=== PATIENT | female | born 1960 | race Caucasian/White ===

== ENCOUNTER 2022-09-22 18:17 | Emergency (ER) | payer BC, SELFPAY ==
--- NOTE | ~2022-09-22 | CT_ITS ---
EXAMINATION: CT ABDOMEN AND PELVIS WITHOUT CONTRAST CLINICAL INFORMATION: Right flank pain and history of kidney stones COMPARISON: None TECHNIQUE: Multidetector volumetric imaging was performed from the superior aspect of the liver through the pubic symphysis. Sagittal and coronal reformatted images were obtained on the technologist's workstation. This CT examination was performed using dose optimization techniques as appropriate, variously including the following: *Automated exposure control *Adjustment of mA and/or kV according to patient size (this includes techniques or standardized protocols for targeted exams where dose is matched to indication/reason for exam; i.e. extremities or head) *Use of iterative reconstruction technique DLP: 537 mGy-cm FINDINGS: LUNG BASES: The visualized lung bases are unremarkable. LIVER, GALLBLADDER, AND BILIARY TREE: Mild hepatic hypoattenuation suggesting mild steatosis. No liver lesion or biliary ductal dilation. The gallbladder is unremarkable with no evidence of radiopaque gallstones, gallbladder wall thickening, or obvious pericholecystic inflammatory changes. PANCREAS: Unremarkable. SPLEEN: Unremarkable. ADRENAL GLANDS: Unremarkable. KIDNEYS AND URETERS: No radiodense urinary tract calculi or hydronephrosis. No renal lesion. No perinephric stranding or fluid collection. BLADDER: Unremarkable. GASTROINTESTINAL TRACT: Possible small hiatal hernia. No dilated bowel loops. No bowel wall thickening. Normal appendix. No intra-abdominal free air. ABDOMINAL WALL: No significant hernia is appreciated. LYMPH NODES: No lymphadenopathy. VASCULAR: Normal caliber abdominal aorta. Scant scattered vascular calcifications. PELVIC VISCERA: Small amount of free pelvic fluid. Heterogeneous attenuation structure in the pelvis measuring approximately 7.5 x 6.3 x 6 cm in size. Uncertain as to whether not this represents an abnormal fibroid uterus or possibly and adnexal lesion or hemorrhagic mass or cyst. Correlate clinically with symptoms referable to the pelvis and suggest pelvic ultrasound for further evaluation. OSSEOUS STRUCTURES: Levoconvex scoliotic curvature the thoracolumbar spine with multilevel eccentric degenerative disc disease in lower lumbar facet arthrosis. No acute fracture or suspicious appearing osseous lesion. CT/CT abdomen pelvis wo IV con IMPRESSION: 1. No radiodense urinary tract calculi or hydronephrosis. 2. Heterogeneous attenuation structure/mass in the pelvis measuring approximately 7.5 x 6.3 x 6 cm in size. Uncertain as to whether not this represents an abnormal fibroid uterus or possibly an adnexal lesion or hemorrhagic mass or cyst. Correlate clinically with symptoms referable to the pelvis and suggest pelvic ultrasound for further evaluation. 3. Small amount of free pelvic fluid. 4. Mild hepatic steatosis.
--- NOTE | ~2022-09-22 | US_ITS ---
EXAMINATION: ULTRASOUND PELVIC, COMPLETE CLINICAL INFORMATION: Pelvic mass on CT. Low back pain. COMPARISON: CT scan abdomen pelvis 09/22/2022 TECHNIQUE: Transvaginal: Used to better visualize pelvic structures Transabdominal: Not adequate for visualization Spectral Doppler and color Doppler exam was utilized. LMP: Uncertain FINDINGS: UTERUS: Within the pelvis there is a heterogeneous well-defined mass which is most likely a fibroid uterus. Endometrial stripe is not identified however. The cervix cannot be identified.. This measures 6.4 x 5.4 x 6.8 cm. ADNEXA: Neither the right nor left ovary is seen. No adnexal abnormality. Cul-de-sac: No Fluid US/US pelvic and transvaginal IMPRESSION: 1. Heterogeneous well-defined mass in the pelvis measuring 6.8 cm. This is most likely a fibroid uterus. Correlate with surgical history. 2. The patient has not had a prior hysterectomy the pelvic lesion can be further evaluated with pelvic MRI. 3. Neither the right or left ovary is seen. There is no adnexal abnormality. This critical result was discussed with Zohreh Forrest NP on 09/22/2022, 10:00 PM and it was ascertained that the content and urgency of the report was understood at the time of direct communication.
[2022-09-22 18:20] VITALS: BP 144/74; PULSE 75; RESP 18; TEMP 36.9; O2SAT 95; BMI 26.6
--- NOTE | 2022-09-22 18:21 | ED_ITS ---
HPI - General Adult General Chief complaint: Back Pain/Injury <MIR Smith - Last Filed: 09/22/22 18:22> Stated complaint: lower back pain X1wk,unable to walk <MIR Smith - Last Filed: 09/22/22 18:22> Time Seen by Provider: 09/22/22 22:10 <MIR Smith - Last Filed: 09/22/22 18:22> Source: patient <Zohreh Forrest NP - Last Filed: 09/22/22 23:50> Mode of arrival: ambulatory <Zohreh Forrest NP - Last Filed: 09/22/22 23:50> Limitations: no limitations <Zohreh Forrest NP - Last Filed: 09/22/22 23:50> History of Present Illness HPI narrative: This is a 61-year-old male with a history of renal colic, back pain, partial hyst in the past who presents with right lower back pain for the last 1 week with no known injury or trauma. Patient denies any radiation of pain. Pain is worsened with walking and movement. No numbness/weakness/tingling in the lower extremities. No numbness in the groin. No fevers or chills. No ur inary symptoms. No bowel or bladder incontinence. Patient taking ibuprofen at home with continued symptoms <Zohreh Forrest NP - Last Filed: 09/22/22 23:50> Related Data Home medications: Previous Rx's Medication Instructions Recorded diazepam 5 mg tablet (Valium) 5 mg PO TID PRN muscle spasm #15 09/22/22 tabs ketorolac 10 mg tablet 10 mg PO Q8H PRN pain #20 tabs 09/22/22 lidocaine 5 % topical patch 1 patch topical DAILY #15 ea 09/22/22 (Lidoderm) <MIR Smith - Last Filed: 09/22/22 18:22> Allergies/adverse reactions: Allergies Allergy/AdvReac Type Severity Reaction Status Date / Time No Known Allergies Allergy Verified 09/22/22 18:20 <MIR Smith Last Filed: 09/22/22 18:22> Review of Systems Review of Systems: Yes all other systems are reviewed and are negative <Zohreh Forrest NUCLEAR LOGGING ENGINEER - Last Filed: 09/22/22 23:50> Constitutional: Constitutional: Reports no additional constitutional complaints, Denies body ache(s), Denies chills, Denies fever(s), Denies headache(s) and Denies weakness <Zohreh Forrest NUCLEAR LOGGING ENGINEER - Last Filed: 09/22/22 23:50> Eyes: Eyes: Reports no additional eye complaints and Denies change in vision <Zohreh Forrest NUCLEAR LOGGING ENGINEER - Last Filed: 09/22/22 23:50> ENT: Reports system reviewed and no additional complaints, except as documented, Denies dizziness, Denies headache(s), Denies nasal congestion, Denies nasal discharge and Denies neck pain <Zohreh Forrest NUCLEAR LOGGING ENGINEER - Last Filed: 09/22/22 23:50> Cardiovascular: Cardiovascular: Reports no additional cardiovascular complaints, Denies chest pain, Denies leg edema and Denies dyspnea <Zohreh Forrest NUCLEAR LOGGING ENGINEER - Last Filed: 09/22/22 23:50> Respiratory: Respiratory: Reports no additional respiratory complaints, Denies cough and Denies dyspnea <Zohreh Forrest NUCLEAR LOGGING ENGINEER - Last Filed: 09/22/22 23:50> Gastrointestinal: Gastrointestinal: Reports no additional gastrointestinal complaints, Denies abdominal pain, Denies diarrhea, Denies nausea and Denies vomiting <Zohreh Forrest NUCLEAR LOGGING ENGINEER - Last Filed: 09/22/22 23:50> Genitourinary: Genitourinary: Reports no additional female genitourinary complaints and Denies urinary incontinence <Zohreh Forrest NUCLEAR LOGGING ENGINEER - Last Filed: 09/22/22 23:50> Musculoskeletal: Musculoskeletal: Reports no additional musculoskeletal complaints, Reports back pain, Denies arthralgias, Denies joint swelling, Denies neck pain, Denies numbness and Denies tingling <Zohreh Forrest NUCLEAR LOGGING ENGINEER - Last Filed: 09/22/22 23:50> Integumentary/Breasts: Skin/Breast: Reports system reviewed and no additional complaints, except as docu and Denies rash <Zohreh Forrest NUCLEAR LOGGING ENGINEER - Last Filed: 09/22/22 23:50> Neurologic: Reports system reviewed and no additional complaints, except as documented, Denies dizziness, Denies headache(s), Denies numbness, Denies tingling and Denies weakness <Zohreh Forrest NP - Last Filed: 09/22/22 23:50> [facility] Past Medical History Attestation statement: The following information was validated with the patient. <Zohreh Forrest NP - Last Filed: 09/22/22 23:50> Source: old records reviewed and nursing notes reviewed <Zohreh Forrest NP - Last Filed: 09/22/22 23:50> Social History Social History: Social History Advance Directives: No Advance Directives Information Provided: Yes <MIR Smith - Last Filed: 09/22/22 18:22> Physical Exam ED Vital Signs: Vital Signs - 24 hr 09/22/22 18:20 09/22/22 22:10 Temperature 98.5 F 98.1 F Pulse Rate 75 72 Respiratory Rate 18 16 Blood Pressure 144/74 H 155/80 H Pulse Oximetry 95 97 Oxygen Delivery Method Room Air Room Air BMI result Body Mass Index 26.6 <MIR Smith - Last Filed: 09/22/22 18:22> Vital Signs - 24 hr 09/22/22 18:20 09/22/22 22:10 Temperature 98.5 F 98.1 F Pulse Rate 75 72 Respiratory Rate 18 16 Blood Pressure 144/74 H 155/80 H Pulse Oximetry 95 97 Oxygen Delivery Method Room Air Room Air BMI result Body Mass Index 26.6 <Zohreh Forrest NP - Last Filed: 09/22/22 23:50> Const General: cooperative, healthy appearing, comfortable and no acute distress <Zohreh Forrest NP - Last Filed: 09/22/22 23:50> Orientation/consciousness: patient oriented x3 <Zohreh Forrest NP - Last Filed: 09/22/22 23:50> Limitations: no limitations <Zohreh Forrest NP - Last Filed: 09/22/22 23:50> HENMT Head: Yes normal to inspection <Zohreh Forrest NUCLEAR LOGGING ENGINEER - Last Filed: 09/22/22 23:50> Ears: hearing grossly normal bilaterally <Zohreh Forrest NUCLEAR LOGGING ENGINEER - Last Filed: 09/22/22 23:50> Eyes General: appearance normal, both eyes and all related structures <Zohreh Forrest NUCLEAR LOGGING ENGINEER - Last Filed: 09/22/22 23:50> Pupils: Equal, round and reactive pupils present <Zohreh Forrest NUCLEAR LOGGING ENGINEER - Last Filed: 09/22/22 23:50> Neck Neck: Yes normal visual inspection <Zohreh Forrest, NUCLEAR LOGGING ENGINEER - Last Filed: 09/22/22 23:50> Chest Chest palpation & inspection: normal inspection of the chest <Zohreh Forrest NUCLEAR LOGGING ENGINEER - Last Filed: 09/22/22 23:50> Resp Effort & Inspection: normal respiratory effort <Zohreh Forrest NUCLEAR LOGGING ENGINEER - Last Filed: 09/22/22 23:50> Auscultation: clear to auscultation bilaterally <Zohreh Forrest NUCLEAR LOGGING ENGINEER - Last Filed: 09/22/22 23:50> Cardio Rate: regular rate <Zohreh Forrest NUCLEAR LOGGING ENGINEER - Last Filed: 09/22/22 23:50> Rhythm: regular rhythm <Zohreh Forrest NUCLEAR LOGGING ENGINEER - Last Filed: 09/22/22 23:50> Peripheral pulses: Peripheral pulses 2+ throughout <Zohreh Forrest NUCLEAR LOGGING ENGINEER - Last Filed: 09/22/22 23:50> GI Inspection: Yes normal to inspection <Zohreh Forrest NUCLEAR LOGGING ENGINEER - Last Filed: 09/22/22 23:50> Palpation (GI): Soft to palpation and nontender <Zohreh Forrest NUCLEAR LOGGING ENGINEER - Last Filed: 09/22/22 23:50> General: Yes no CVA tenderness <Zohreh Forrest NUCLEAR LOGGING ENGINEER - Last Filed: 09/22/22 23:50> Back/Spine/Pelvis Other: There is tenderness to the soft tissue of the right lumbar spine with no midline tenderness, step-offs deformities. Pain is worsened with right straight leg raise. Pain is worse with flexion and extension of the lumbar spine. +spasm <Zohreh Lon, NUCLEAR LOGGING ENGINEER - Last Filed: 09/22/22 23:50> Back: no CVA tenderness <Zohreh Lon, NUCLEAR LOGGING ENGINEER - Last Filed: 09/22/22 23:50> Thoracic/Lumbar Spine: thoracic and lumbar spine normal to inspection <Zohreh Lon, NUCLEAR LOGGING ENGINEER - Last Filed: 09/22/22 23:50> Skin General skin exam: no rashes or lesions noted <Zohreh Lon, NUCLEAR LOGGING ENGINEER - Last Filed: 09/22/22 23:50> Neuro General: patient oriented x3 and moves all extremities <Zohreh Lon, NUCLEAR LOGGING ENGINEER - Last Filed: 09/22/22 23:50> Cranial nerves: Yes CN's II-XII intact bilaterally, Yes Equal, round and reactive pupils present, Yes Bilaterally intact EOM present, Yes Nystagmus not present, Yes Normal facial strength present and Yes Midline tongue present <Zohreh Lon, NUCLEAR LOGGING ENGINEER - Last Filed: 09/22/22 23:50> Cognition (Neuro): normal cognition <Zohreh Juanitoi, NUCLEAR LOGGING ENGINEER - Last Filed: 09/22/22 23:50> Gait exam (Neuro): Normal gait present <Zohreh Lon, NUCLEAR LOGGING ENGINEER - Last Filed: 09/22/22 23:50> Motor exam (neuro): 5/5 motor strength present throughout <Zohreh Lon, NUCLEAR LOGGING ENGINEER - Last Filed: 09/22/22 23:50> Sensory Exam: Normal double simultaneous stimulation for sensation <Zohreh Lon, NUCLEAR LOGGING ENGINEER - Last Filed: 09/22/22 23:50> Deep tendon reflexes (DTR's): Right patellar reflex intensity grade: 2+ and Left patellar reflex intensity grade: 2+ <Zohreh Lon, NUCLEAR LOGGING ENGINEER - Last Filed: 09/22/22 23:50> Extrem General: Yes normal to inspection, Yes no pedal edema and Yes no calf tenderness <Zohreh Forrest, NUCLEAR LOGGING ENGINEER - Last Filed: 09/22/22 23:50> Course Course Course Narrative: This is an RME: Additional HPI, ROS, PE not included below will be deferred to primary provider. 61-year-old female no significant medical history presents with severe 10/10 intermittent right flank pain, patient states this has been going on for 4-5 days, the pain is so severe she cannot walk, she was close to calling an ambulance. Patient reports that she has a history of kidney stones and this feels similar. No blunt trauma. No urinary/bowel in continence/retention, weakness, saddle paresthesias, fevers, chills, nausea, vomiting, changes in urination, headache, vision changes, dizziness, chest pain, shortness of breath. Physical examination with pain with palpation to right flank region. Plan at this time basic labs, urine, CT of the abdomen and pelvis without contrast to rule out kidney stones. However other differentials include mus culoskeletal. <MIR Smith - Last Filed: 09/22/22 18:22> Reevaluation(s) Reevaluation #1: Labs and UA are negative. C remarks on imaging. Patient received Toradol and Valium in the ER with improvement of symptoms. Pain in the back is likely muscular. Patient will be discharged home with NSAID, muscle relaxants and medicated patches. She is aware that the pelvic mass seen on imaging today is likely incidental. She should follow up outpatient with her own executive chairman of the board. Reviewed worrisome signs and symptoms of when to return to the emergency room. Comfortable plan for discharge home. <Zohreh Forrest NP - Last Filed: 09/22/22 23:50> Medications Administered Discontinued Medications Generic Name Dose Route Start Last Admin Trade Name Freq PRN Reason Stop Dose Admin Diazepam 2 mg 09/22/22 22:29 09/22/22 22:45 Diazepam 2 Mg Tablet PO 09/22/22 22:30 2 mg ONCE ONE Administration Ketorolac Tromethamine 30 mg 09/22/22 18:21 09/22/22 22:11 Ketorolac Tromethamine 15 Mg/Ml Vial IM 09/22/22 18:22 30 mg ONCE ONE Administration <MIR Smith - Last Filed: 09/22/22 18:22> Medications Administered Discontinued Medications Generic Name Dose Route Start Last Admin Trade Name Freq PRN Reason Stop Dose Admin Diazepam 2 mg 09/22/22 22:29 09/22/22 22:45 Diazepam 2 Mg Tablet PO 09/22/22 22:30 2 mg ONCE ONE Administration Ketorolac Tromethamine 30 mg 09/22/22 18:21 09/22/22 22:11 Ketorolac Tromethamine 15 Mg/Ml Vial IM 09/22/22 18:22 30 mg ONCE ONE Administration <Zohreh Forrest NP - Last Filed: 09/22/22 23:50> Medical Decision Making Medical Decision Making [facility] Narrative: 61-year-old female here with atraumatic right lower back pain for the last 1 week with no other symptoms. On exam patient has pain on palpation over the soft tissue area with no midline tenderness, step-offs deformities. Patient has palpable muscle spasm on exam. Pain is worsened with flexion and extension of the spine and right straight leg raise. Likely musculoskeletal. Patient reports history of kidney stones and so was worried that this may be causing her pain. Patient has labs, UA, CT and ultrasound ordered from triage <JOE Jackson Last Filed: 09/22/22 23:50> Differential Diagnosis Differential Diagnoses: The differential diagnosis associated with the presentation includes <JOE Jackson Last Filed: 09/22/22 23:50> Pyelonephritis, renal colic, UTI, musculoskeletal back pain. No neurological deficits or red flag symptoms, history of IV drug abuse or imm unocompromised state suggest epidural abscess or cord compression or cord quinine <JOE Jackson Last Filed: 09/22/22 23:50> Consult Healthcare Provider Management of the patient was discussed with: Citizenship Teacher <Zohreh Forrest NP - Last Filed: 09/22/22 23:50> Ultrasound shows a pelvic mass. Patient has history of partial hystere ctomy. ?adnexal or ovarian mass. This was discussed with gynecology. Plan is for patient to follow-up with her own executive chairman of the board outpatient. She is aware that she may need additional imaging and further evaluation for this mass. She is also aware that this may be underlying malignancy and so it is very important that she follows up closely <Zohreh Forrest NP - Last Filed: 09/22/22 23:50> Lab Data [facility] Lab Attestation statement: I reviewed the patient's lab results. <JOE Jackson Last Filed: 09/22/22 23:50> Result Diagrams: 09/22/22 19:28 09/22/22 19:28 <MIR Smith - Last Filed: 09/22/22 18:22> Labs: Lab Results 09/22/22 09/22/22 09/22/22 Range/Units 19:28 19:28 19:28 WBC 7.2 (4.8-10.8) X10*3/uL RBC 4.59 (4.20-5.50) X10*6/uL Hgb 14.4 (12.0-16.0) g/dl Hct 42.5 (37.0-47.0) % MCV 92.6 (80.0-98.0) fL MCH 31.4 (27.0-33.0) pg MCHC 33.9 (31.0-35.0) g/dl RDW 11.7 (11.0-16.0) % Plt Count 227 (160-400) X10*3/uL MPV 9.9 (9.4-12.3) fL Immature Gran % (Auto) 0.1 (0.0-0.4) % Neut % (Auto) 75.5 H (45-73) % Lymph % (Auto) 16.2 L (20-40) % [place] % (Auto) 6.9 (2-11) % Eos % (Auto) 0.7 (0-4) % Baso % (Auto) 0.6 (0-2) % Lymph # (Auto) 1.2 (1.2-4.9) X10*3/uL [place] # (Auto) 0.5 (0.1-1.2) X10*3/uL Eos # (Auto) 0.1 (0.0-0.4) X10*3/uL Baso # (Auto) 0.0 (0.0-0.2) X10*3/uL Abs Immat Gran (auto) 0.01 (0.00-0.03) X10*3/uL Absolute Neuts (auto) 5.5 (2.0-8.3) x10*3/uL Absolute Nucleated RBC 0.000 (0.0-0.012) X10*3/uL Nucleated RBC % (auto) 0.0 (0.0-0.2) /100WBC Sodium 139 (135-145) mmol/L Potassium 4.4 (3.3-5.1) mmol/L Chloride 104 (96-108) mmol/L Carbon Dioxide 23 (22-29) mmol/L Anion Gap 16 (12-20) BUN 16 (9-16) mg/dL Creatinine 0.80 (0.5-1.4) mg/dL Estim Creat Clear Calc 71.8 Estimated GFR > 60 Random Glucose 87 (60-115) mg/dL Calcium 9.3 (8.4-10.2) mg/dL Magnesium 2.1 (1.6-2.6) mg/dL Total Bilirubin 0.9 (0.0-1.0) mg/dL AST 25 (5-31) U/L ALT 29 (0-31) U/L Alkaline Phosphatase 108 (39-117) U/L Total Protein 6.8 (6.5-8.0) g/dL Albumin 4.3 (3.5-5.0) g/dL Lipase 24 (8-78) U/L Urine Color Urine Appearance Urine pH (5.0-9.0) Ur Specific [place] (1.005-1.025) Urine Protein (Neg-Trace) mg/dL Urine Glucose (UA) (Negative) mg/dL Urine Ketones (Negative) mg/dL Urine Blood (Negative) Urine Nitrite (Negative) Ur Leukocyte Esterase (Negative) COVID-19 (EMILIE) Negative (Negative) COVID-19 Clin Com See Note 09/22/22 Range/Units 21:36 WBC (4.8-10.8) X10*3/uL RBC (4.20-5.50) X10*6/uL Hgb (12.0-16.0) g/dl Hct (37.0-47.0) % MCV (80.0-98.0) fL MCH (27.0-33.0) pg MCHC (31.0-35.0) g/dl RDW (11.0-16.0) % Plt Count (160-400) X10*3/uL MPV (9.4-12.3) fL Immature Gran % (Auto) (0.0-0.4) % Neut % (Auto) (45-73) % Lymph % (Auto) (20-40) % [place] % (Auto) (2-11) % Eos % (Auto) (0-4) % Baso % (Auto) (0-2) % Lymph # (Auto) (1.2-4.9) X10*3/uL [place] # (Auto) (0.1-1.2) X10*3/uL Eos # (Auto) (0.0-0.4) X10*3/uL Baso # (Auto) (0.0-0.2) X10*3/uL Abs Immat Gran (auto) (0.00-0.03) X10*3/uL Absolute Neuts (auto) (2.0-8.3) x10*3/uL Absolute Nucleated RBC (0.0-0.012) X10*3/uL Nucleated RBC % (auto) (0.0-0.2) /100WBC Sodium (135-145) mmol/L Potassium (3.3-5.1) mmol/L Chloride (96-108) mmol/L Carbon Dioxide (22-29) mmol/L Anion Gap (12-20) BUN (9-16) mg/dL Creatinine (0.5-1.4) mg/dL Estim Creat Clear Calc Estimated GFR Random Glucose (60-115) mg/dL Calcium (8.4-10.2) mg/dL Magnesium (1.6-2.6) mg/dL Total Bilirubin (0.0-1.0) mg/dL AST (5-31) U/L ALT (0-31) U/L Alkaline Phosphatase (39-117) U/L Total Protein (6.5-8.0) g/dL Albumin (3.5-5.0) g/dL Lipase (8-78) U/L Urine Color Yellow Urine Appearance Clear Urine pH 5.5 (5.0-9.0) Ur Specific [place] 1.020 (1.005-1.025) Urine Protein Negative (Neg-Trace) mg/dL Urine Glucose (UA) Negative (Negative) mg/dL Urine Ketones Negative (Negative) mg/dL Urine Blood Negative (Negative) Urine Nitrite Negative (Negative) Ur Leukocyte Esterase Negative (Negative) COVID-19 (EMILIE) (Negative) COVID-19 Clin Com <MIR Smith - Last Filed: 09/22/22 18:22> Lab Results 09/22/22 09/22/22 09/22/22 Range/Units 19:28 19:28 19:28 WBC 7.2 (4.8-10.8) X10*3/uL RBC 4.59 (4.20-5.50) X10*6/uL Hgb 14.4 (12.0-16.0) g/dl Hct 42.5 (37.0-47.0) % MCV 92.6 (80.0-98.0) fL MCH 31.4 (27.0-33.0) pg MCHC 33.9 (31.0-35.0) g/dl RDW 11.7 (11.0-16.0) % Plt Count 227 (160-400) X10*3/uL MPV 9.9 (9.4-12.3) fL Immature Gran % (Auto) 0.1 (0.0-0.4) % Neut % (Auto) 75.5 H (45-73) % Lymph % (Auto) 16.2 L (20-40) % [place] % (Auto) 6.9 (2-11) % Eos % (Auto) 0.7 (0-4) % Baso % (Auto) 0.6 (0-2) % Lymph # (Auto) 1.2 (1.2-4.9) X10*3/uL [place] # (Auto) 0.5 (0.1-1.2) X10*3/uL Eos # (Auto) 0.1 (0.0-0.4) X10*3/uL Baso # (Auto) 0.0 (0.0-0.2) X10*3/uL Abs Immat Gran (auto) 0.01 (0.00-0.03) X10*3/uL Absolute Neuts (auto) 5.5 (2.0-8.3) x10*3/uL Absolute Nucleated RBC 0.000 (0.0-0.012) X10*3/uL Nucleated RBC % (auto) 0.0 (0.0-0.2) /100WBC Sodium 139 (135-145) mmol/L Potassium 4.4 (3.3-5.1) mmol/L Chloride 104 (96-108) mmol/L Carbon Dioxide 23 (22-29) mmol/L Anion Gap 16 (12-20) BUN 16 (9-16) mg/dL Creatinine 0.80 (0.5-1.4) mg/dL Estim Creat Clear Calc 71.8 Estimated GFR > 60 Random Glucose 87 (60-115) mg/dL Calcium 9.3 (8.4-10.2) mg/dL Magnesium 2.1 (1.6-2.6) mg/dL Total Bilirubin 0.9 (0.0-1.0) mg/dL AST 25 (5-31) U/L ALT 29 (0-31) U/L Alkaline Phosphatase 108 (39-117) U/L Total Protein 6.8 (6.5-8.0) g/dL Albumin 4.3 (3.5-5.0) g/dL Lipase 24 (8-78) U/L Urine Color Urine Appearance Urine pH (5.0-9.0) Ur Specific [place] (1.005-1.025) Urine Protein (Neg-Trace) mg/dL Urine Glucose (UA) (Negative) mg/dL Urine Ketones (Negative) mg/dL Urine Blood (Negative) Urine Nitrite (Negative) Ur Leukocyte Esterase (Negative) COVID-19 (EMILIE) Negative (Negative) COVID-19 Clin Com See Note 09/22/22 Range/Units 21:36 WBC (4.8-10.8) X10*3/uL RBC (4.20-5.50) X10*6/uL Hgb (12.0-16.0) g/dl Hct (37.0-47.0) % MCV (80.0-98.0) fL MCH (27.0-33.0) pg MCHC (31.0-35.0) g/dl RDW (11.0-16.0) % Plt Count (160-400) X10*3/uL MPV (9.4-12.3) fL Immature Gran % (Auto) (0.0-0.4) % Neut % (Auto) (45-73) % Lymph % (Auto) (20-40) % [place] % (Auto) (2-11) % Eos % (Auto) (0-4) % Baso % (Auto) (0-2) % Lymph # (Auto) (1.2-4.9) X10*3/uL [place] # (Auto) (0.1-1.2) X10*3/uL Eos # (Auto) (0.0-0.4) X10*3/uL Baso # (Auto) (0.0-0.2) X10*3/uL Abs Immat Gran (auto) (0.00-0.03) X10*3/uL Absolute Neuts (auto) (2.0-8.3) x10*3/uL Absolute Nucleated RBC (0.0-0.012) X10*3/uL Nucleated RBC % (auto) (0.0-0.2) /100WBC Sodium (135-145) mmol/L Potassium (3.3-5.1) mmol/L Chloride (96-108) mmol/L Carbon Dioxide (22-29) mmol/L Anion Gap (12-20) BUN (9-16) mg/dL Creatinine (0.5-1.4) mg/dL Estim Creat Clear Calc Estimated GFR Random Glucose (60-115) mg/dL Calcium (8.4-10.2) mg/dL Magnesium (1.6-2.6) mg/dL Total Bilirubin (0.0-1.0) mg/dL AST (5-31) U/L ALT (0-31) U/L Alkaline Phosphatase (39-117) U/L Total Protein (6.5-8.0) g/dL Albumin (3.5-5.0) g/dL Lipase (8-78) U/L Urine Color Yellow Urine Appearance Clear Urine pH 5.5 (5.0-9.0) Ur Specific [place] 1.020 (1.005-1.025) Urine Protein Negative (Neg-Trace) mg/dL Urine Glucose (UA) Negative (Negative) mg/dL Urine Ketones Negative (Negative) mg/dL Urine Blood Negative (Negative) Urine Nitrite Negative (Negative) Ur Leukocyte Esterase Negative (Negative) COVID-19 (EMILIE) (Negative) COVID-19 Clin Com <Zohreh Forrest NP - Last Filed: 09/22/22 23:50> Independent Interpretation I performed an independent interpretation of an: Ultrasound and CT Scan <Zohreh Forrest NP - Last Filed: 09/22/22 23:50> Interpretation: I independently reviewed the ultrasound and the CT and agree with the radiologist's report. In addition patient has a history of a partial hysterectomy. Less likely fibroid uterus. More likely ovarian or adnexal mass <Zohreh Forrest NP - Last Filed: 09/22/22 23:50> Radiology Impression Discussion of test interpretation with radiology: I have reviewed the radiologist's reading. <Zohreh Forrest NP - Last Filed: 09/22/22 23:50> Radiologist Impression: INDINGS: LUNG BASES: The visualized lung bases are unremarkable.? LIVER, GALLBLADDER, AND BILIARY TREE: Mild hepatic hypoattenuation suggesting mild steatosis. No liver lesion or biliary ductal dilation. The gallbladder is unremarkable with no evidence of radiopaque gallstones, gallbladder wall thickening, or obvious pericholecystic inflammatory changes.? PANCREAS: Unremarkable.? SPLEEN: Unremarkable.? ADRENAL GLANDS: Unremarkable.? KIDNEYS AND URETERS: No radiodense urinary tract calculi or hydronephrosis. No renal lesion. No perinephric stranding or fluid collection.? BLADDER: Unremarkable.? GASTROINTESTINAL TRACT: Possible small hiatal hernia. No dilated bowel loops. No bowel wall thickening. Normal appendix. No intra-abdominal free air.? ABDOMINAL WALL: No significant hernia is appreciated.? LYMPH NODES: No lymphadenopathy. VASCULAR: Normal caliber abdominal aorta. Scant scattered vascular calcifications. PELVIC VISCERA: Small amount of free pelvic fluid. Heterogeneous attenuation structure in the pelvis measuring approximately 7.5 x 6.3 x 6 cm in size. Uncertain as to whether not this represents an abnormal fibroid uterus or possibly and adnexal lesion or hemorrhagic mass or cyst. Correlate clinically with symptoms referable to the pelvis and suggest pelvic ultrasound for further evaluation.? OSSEOUS STRUCTURES: Levoconvex scoliotic curvature the thoracolumbar spine with multilevel eccentric degenerative disc disease in lower lumbar facet arthrosis. No acute fracture or suspicious appearing osseous lesion. CT/CT abdomen pelvis wo IV con IMPRESSION: 1.? No radiodense urinary tract calculi or hydronephrosis. 2.? Heterogeneous attenuation structure/mass in the pelvis measuring approximately 7.5 x 6.3 x 6 cm in size. Uncertain as to whether not this represents an abnormal fibroid uterus or possibly an adnexal lesion or hemorrhagic mass or cyst. Correlate clinically with symptoms referable to the pelvis and suggest pelvic ultrasound for further evaluation. 3.? Small amount of free pelvic fluid. 4.? Mild hepatic steatosis. [address] [address] Ultrasound Report Signed Patient: Caryn Kumar MR#: [id number] : 1960 Acct:[id number] Age/Sex: 61 / F ADM Date: 09/22/22 Loc: HO.ED Attending Dr: Ordering Physician: Mario Alberto Mercer Date of Service: 09/22/22 Procedure(s): US pelvic and transvaginal Accession Number(s): [id number] cc: Mario Alberto Mercer~ EXAMINATION: ULTRASOUND PELVIC, COMPLETE CLINICAL INFORMATION: Pelvic mass on CT. Low back pain. COMPARISON: CT scan abdomen pelvis 09/22/2022 TECHNIQUE: Transvaginal: Used to better visualize pelvic structures Transabdominal: Not adequate for visualization Spectral Doppler and color Doppler exam was utilized. LMP: Uncertain FINDINGS: UTERUS: Within the pelvis there is a heterogeneous well-defined mass which is most likely a fibroid uterus. Endometrial stripe is not identified however. The cervix cannot be identified.. This measures 6.4 x 5.4 x 6.8 cm. ADNEXA: Neither the right nor left ovary is seen. No adnexal abnormality. Cul-de-sac: No Fluid US/US pelvic and transvaginal IMPRESSION: 1.? Heterogeneous well-defined mass in the pelvis measuring 6.8 cm. This is most likely a fibroid uterus. Correlate with surgical history. 2.? The patient has not had a prior hysterectomy the pelvic lesion can be further evaluated with pelvic MRI. 3.? Neither the right or left ovary is seen. There is no adnexal abnormality. ? This critical result was discussed with Zohreh Forrest NP on 09/22/2022, 10:00 PM and it was ascertained that the content and urgency of the report was understood at the time of direct communication. ? <Zhoreh Forrest NP - Last Filed: 09/22/22 23:50> Discharge Plan Discharge Clinical Impression: Strain of lumbar region, Abnormal ultrasound <MIR Smith Last Filed: 09/22/22 18:22> Patient Disposition: Home, Self-Care <MIR Smith - Last Filed: 09/22/22 18:22> Instructions: Back Pain (ED) <MIR Smith Last Filed: 09/22/22 18:22> Additional Instructions: Your ultrasound shows IMPRESSION: 1.? Heterogeneous well-defined mass in the pelvis measuring 6.8 cm. This is most likely a fibroid uterus. Correlate with surgical history. 2.? The patient has not had a prior hysterectomy the pelvic lesion can be further evaluated with pelvic MRI. 3.? Neither the right or left ovary is seen. There is no adnexal abnormality. We did discuss this with gynceology. 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 It is an incidental finding and not likelty causing your pain today. Take the medications as prescribed No heavy lifting or bending Return for incontinence of urine/stool, weakness/numbness/tingling in the legs, fever, vaginal bleeding <MIR Smith Last Filed: 09/22/22 18:22> Prescriptions: New diazepam [Valium] 5 mg tablet 5 mg PO TID PRN (Reason: muscle spasm) Qty: 15 0RF lidocaine [Lidoderm] 5 % adhesive patch,medicated 1 patch topical DAILY Qty: 15 0RF Rx Instructions: leave on most painful area for up to 12 hrs ketorolac 10 mg tablet 10 mg PO Q8H PRN (Reason: pain) Qty: 20 0RF <MIR Smith Last Filed: 09/22/22 18:22> Referrals: Liz Hong NUCLEAR LOGGING ENGINEER [Primary Care Provider] - 1 week <MIR Smith Last Filed: 09/22/22 18:22> Interventions: ED Discharge Assessment Last Done: 09/22/22 23:08 <MIR Smith Last Filed: 09/22/22 18:22> Discharge Date/Time: 09/22/22 23:09 <MIR Smith - Last Filed: 09/22/22 18:22>
[2022-09-22 19:34] LABS: MANUAL DIFF FLAG NO
[2022-09-22 19:38] LABS: Basophils Percent Auto 0.6 % (0-2); Eosinophils Absolute Auto 0.1 X10*3/uL (0.0-0.4); Eosinophils Percent Auto 0.7 % (0-4); Hematocrit 42.5 % (37.0-47.0); Hemoglobin 14.4 g/dl (12.0-16.0); Imm Gran Abs Auto 0.01 X10*3/uL (0.00-0.03); Imm Gran Pct Auto 0.1 % (0.0-0.4); Lymphocytes Absolute Auto 1.2 X10*3/uL (1.2-4.9); Lymphocytes Percent Auto 16.2 % (20-40); Mean Corpuscular HGB Conc 33.9 g/dl (31.0-35.0); Mean Corpuscular Hemoglobin 31.4 pg (27.0-33.0); Mean Corpuscular Volume 92.6 fL (80.0-98.0); Mean Platelet Volume 9.9 fL (9.4-12.3); Monocytes Absolute Auto 0.5 X10*3/uL (0.1-1.2); Monocytes Percent Auto 6.9 % (2-11); Neutrophils Absolute Auto 5.5 x10*3/uL (2.0-8.3); Neutrophils Percent Auto 75.5 % (45-73); Platelet Count 227 X10*3/uL (160-400); Red Blood Count 4.59 X10*6/uL (4.20-5.50); Red Cell Distribution Width 11.7 % (11.0-16.0); White Blood Count 7.2 X10*3/uL (4.8-10.8)
[2022-09-22 19:49] LABS: Alanine Aminotransferase 29 U/L (0-31); Albumin Level 4.3 g/dL (3.5-5.0); Alkaline Phosphatase 108 U/L (39-117); Anion Gap 16 (12-20); Aspartate Amino Transferase 25 U/L (5-31); Bilirubin Total 0.9 mg/dL (0.0-1.0); Blood Urea Nitrogen 16 mg/dL (9-16); Calcium 9.3 mg/dL (8.4-10.2); Carbon Dioxide 23 mmol/L (22-29); Chloride 104 mmol/L (96-108); Creatinine Clr Calc Pharmacy 71.8; Estimated Glomerular Filt Rate > 60; Glucose Random 87 mg/dL (60-115); Lipase 24 U/L (8-78); Magnesium 2.1 mg/dL (1.6-2.6); Potassium 4.4 mmol/L (3.3-5.1); Sodium 139 mmol/L (135-145); Total Protein 6.8 g/dL (6.5-8.0)
[2022-09-22 19:51] LABS: COVID-19 Test Negative (Negative); IDNOW Serial# 9DB6401D
[2022-09-22 21:44] LABS: Appearance Urine Clear; Color Urine Yellow; Glucose Urine UA Negative (Negative); Leukocyte Esterase Urine Negative (Negative); Nitrite Urine Negative (Negative); PH 5.5 (5.0-9.0); Urine Blood Negative (Negative); Urine Ketones Negative (Negative); Urine Protein Negative (Neg-Trace)
[2022-09-22 22:10] VITALS: BP 155/80; PULSE 72; RESP 16; TEMP 36.7; O2SAT 97
[2022-09-22] MEDS: Ketorolac Tromethamine 15 MG/ML VIAL 30 MG IM (22:11)
--- NOTE | 2022-09-22 22:11 | MHC.EDTECH ---
this pct assumed care of pt at this time ,vitals sign taken ,warm blanket given .
[2022-09-22] MEDS: diazePAM 2 MG TABLET PO (22:45)
--- NOTE | 2022-09-23 06:27 | P.CONOB_ITS ---
TRAFFIC CIRCUIT ENGINEER - CN: HPI Data of Consult Consult date: 09/22/22 Primary Care Provider: Liz Hong NP Consult Narrative Narrative: Late entry note I was consulted on Caryn Kumar who is a 62 year old female with a history of ? Hysterectomy in the past presented the emergency room with right lower back pain of 1 week duration.? Patient denies any radiation of pain. No other urinary or GI or bottling line attendant symptoms. The emergency room workup included CBC, chemistry, urine all negative. Pelvic ultrasound is CT of abdomen showed abnormal findings in the pelvis. cc:: CC: OB [facility] Social History Social History Advance Directives: No Advance Directives Information Provided: Yes Meds Allergies Allergy/AdvReac Type Severity Reaction Status Date / Time No Known Allergies Allergy Verified 09/22/22 18:20 TRAFFIC CIRCUIT ENGINEER Physical Exam Vitals Vital signs: Temp Pulse Resp BP Pulse Ox O2 Del Method 98.1 F 72 16 155/80 H 97 09/22/22 22:10 09/22/22 22:10 09/22/22 22:10 09/22/22 22:10 09/22/22 22:10 09/22/22 22:10 BMI result Body Mass Index 26.6 Additional Comments: Physical exam reported by MIR Jorge as the following Tenderness to the soft tissue of the right lumbar spine with no midline tenderness, step-offs deformities.? Pain is worsened with right straight leg raise.? Pain is worse with flexion and extension of the lumbar spine. +spasm no CVA tenderness Abdominal exam :no tenderness soft, TRAFFIC CIRCUIT ENGINEER - Results Labs 09/22/22 19:28 09/22/22 19:28 Labs: Short CBC 09/22/22 Range/Units 19:28 WBC 7.2 (4.8-10.8) X10*3/uL Hgb 14.4 (12.0-16.0) g/dl Hct 42.5 (37.0-47.0) % Plt Count 227 (160-400) X10*3/uL BMP 09/22/22 19:28 Sodium 139 Potassium 4.4 Chloride 104 Carbon Dioxide 23 BUN 16 Creatinine 0.80 Calcium 9.3 Liver Function 09/22/22 Range/Units 19:28 Total Bilirubin 0.9 (0.0-1.0) mg/dL AST 25 (5-31) U/L ALT 29 (0-31) U/L Alkaline Phosphatase 108 (39-117) U/L Albumin 4.3 (3.5-5.0) g/dL Urine 09/22/22 Range/Units 21:36 Urine Color Yellow Urine Appearance Clear Urine pH 5.5 (5.0-9.0) Ur Specific [place] 1.020 (1.005-1.025) Urine Protein Negative (Neg-Trace) mg/dL Urine Glucose (UA) Negative (Negative) mg/dL Imaging CT scan - pelvis: Radiologist's impression: ITS Impressions Abdomen/Pelvis CT 09/22/22 18:53 IMPRESSION: 1. No radiodense urinary tract calculi or hydronephrosis. 2. Heterogeneous attenuation structure/mass in the pelvis measuring approximately 7.5 x 6.3 x 6 cm in size. Uncertain as to whether not this represents an abnormal fibroid uterus or possibly an adnexal lesion or hemorrhagic mass or cyst. Correlate clinically with symptoms referable to the pelvis and suggest pelvic ultrasound for further evaluation. 3. Small amount of free pelvic fluid. 4. Mild hepatic steatosis. Pelvic/Transvag US 09/22/22 21:03 IMPRESSION: 1. Heterogeneous well-defined mass in the pelvis measuring 6.8 cm. This is most likely a fibroid uterus. Correlate with surgical history. 2. The patient has not had a prior hysterectomy the pelvic lesion can be further evaluated with pelvic MRI. 3. Neither the right or left ovary is seen. There is no adnexal abnormality. This critical result was discussed with Zohreh Forrest NP on 09/22/2022, 10:00 PM and it was ascertained that the content and urgency of the report was understood at the time of direct communication. Assessment and Plan (1) Pelvic mass: Status: Acute Plan Discussed with Zohreh Forrest NP the following: Based on review of CT scan and pelvic ultrasound report, I recommended that the patient needs an outpatient evaluation of the pelvic mass with the following possible differential diagnosis including but not limited to: History of a supracervical hysterectomy with new onset rapid growth of a myoma possible myosa rcoma, adnexal solid complex mass, malignant pre malignant or benign in nature, in addition to other possibilities, the patient needs and outpatient gynecologic evaluation as soon as possible for further management. I spent a total of 20 minutes reviewing the chart, communicating with the emergency room provider and documenting in the medical record Time Spent With Patient Time: Total time managing care of this patient today ____ minutes.
== END 2022-09-22 23:09 | disposition home or self-care (01) ==
PROVIDERS: Physician Assistant; Emergency Provider Emergency Medicine; PCP Nurse Practitioner Family
DX: S39.012A Strain of muscle, fascia and tendon of lower back, initial encounter (principal); X58.XXXA Exposure to other specified factors, initial encounter; Z20.822 Contact with and (suspected) exposure to COVID-19; Y93.9 Activity, unspecified; Y92.9 Unspecified place or not applicable; Y99.9 Unspecified external cause status; R93.89 Abnormal findings on diagnostic imaging of other specified body structures; R19.09 Other intra-abdominal and pelvic swelling, mass and lump
CPT/HCPCS: 74176; 76830; 76856; 80053; 81003; 83690; 83735; 85025; 87635; 96372; 99284; J1885

== ENCOUNTER 2022-09-25 14:11 | Observation (INO) | payer BC, SELFPAY ==
--- NOTE | ~2022-09-25 | MR_ITS ---
EXAMINATION: MR LUMBAR SPINE WITHOUT CONTRAST CLINICAL INFORMATION: Back pain. Radicular pain. COMPARISON: CT abdomen and pelvis from 09/22/2022. TECHNIQUE: MRI of the lumbar spine was obtained using routine sequences without contrast. FINDINGS: Prominent left convex curvature of the lumbar spine. Mild degenerative retrolisthesis of L2 on L3 and L3 on L4. Minimal degenerative grade 1 anterolisthesis of L4 on L5. Moderate degenerative disc disease from T12-L4. Mild degenerative disc disease at L4-L5 and L5-S1. Associated mixed Modic type discogenic endplate changes including mild Modic type I discogenic edema at T12-L1, L2-L3, and L3-L4. Mild marrow edema within the posterior elements of L4-S1 consistent with degenerative stress reaction. No additional suspicious marrow edema. The vertebral body heights are well-maintained. The conus medullaris terminates at the level of L1. The distal spinal cord is normal in appearance. Moderate edema within the right-sided psoas musculature from L1-L3. Moderate subcutaneous edema within the soft tissues of the back from L1-L5. No additional significant abnormalities of the paraspinal musculature. Limited evaluation of the intra-abdominal structures without significant abnormalities. The abdominal aorta is of normal contour and caliber. AXIAL SPINAL LEVELS: T12-L1: Mild diffuse disc bulge. There is moderate left and mild right facet joint arthropathy. There is mild right and no left neural foraminal stenosis. There is no spinal canal stenosis. L1-L2: Mild diffuse disc bulge with posterior osseous ridging. There is moderate bilateral facet joint arthropathy. There is mild right and no left neural foraminal stenosis. There is stenosis of the right subarticular zone with no overt spinal canal stenosis centrally. L2-L3: Mild diffuse disc bulge with posterior osseous ridging. There is moderate right and mild left facet joint arthropathy. There is mild right and no left neural foraminal stenosis. There is stenosis of the right subarticular zone with mild spinal canal stenosis centrally. L3-L4: Mild diffuse disc bulge with superimposed left foraminal disc protrusion. There is severe left and moderate right facet joint arthropathy. There is moderate left and mild right neural foraminal stenosis. There is stenosis of the left subarticular zone with mild spinal canal stenosis centrally exacerbated by prominent dorsal epidural lipomatous tissue. L4-L5: Mild diffuse disc bulge exacerbated by uncovering from anterolisthesis. There is severe left worse than right facet joint arthropathy. There is moderate left and no right neural foraminal stenosis. There is stenosis of the left subarticular zone with moderate spinal canal stenosis centrally. L5-S1: Shallow diffuse disc bulge. There is severe left and moderate facet joint arthropathy. There is no neural foraminal stenosis. There is narrowing of the subarticular zones with no overt spinal canal stenosis centrally. MR/MR lumbar spine wo con IMPRESSION: Moderate multilevel degenerative spondyloarthropathy of the lumbar spine as described in detail above. Most notably, there is moderate spinal canal stenosis at L4-L5. Mild spinal canal stenoses at L2-L3 and L3-L4. Narrowing/stenoses of the subarticular zones from L1-S1. Moderate neural foraminal stenoses at L3-L4 and L4-L5. Moderate edema within the right-sided psoas musculature from L1-L3, potentially related to chronic strain injury.
[2022-09-25 14:26] VITALS: BP 148/87; PULSE 67; O2SAT 96
[2022-09-25 14:31] VITALS: BP 137/77; PULSE 58; RESP 18; TEMP 36.8; O2SAT 97; BMI 28.3
[2022-09-25 15:14] LABS: MANUAL DIFF FLAG NO
[2022-09-25 15:15] LABS: Basophils Percent Auto 0.5 % (0-2); Eosinophils Absolute Auto 0.1 X10*3/uL (0.0-0.4); Hematocrit 41.4 % (37.0-47.0); Hemoglobin 13.7 g/dl (12.0-16.0); Imm Gran Abs Auto 0.02 X10*3/uL (0.00-0.03); Imm Gran Pct Auto 0.3 % (0.0-0.4); Lymphocytes Absolute Auto 0.7 X10*3/uL (1.2-4.9); Mean Corpuscular HGB Conc 33.1 g/dl (31.0-35.0); Mean Corpuscular Hemoglobin 31.1 pg (27.0-33.0); Mean Corpuscular Volume 93.9 fL (80.0-98.0); Mean Platelet Volume 10.1 fL (9.4-12.3); Monocytes Absolute Auto 0.5 X10*3/uL (0.1-1.2); Monocytes Percent Auto 8.6 % (2-11); Neutrophils Absolute Auto 4.5 x10*3/uL (2.0-8.3); Neutrophils Percent Auto 77.6 % (45-73); Platelet Count 205 X10*3/uL (160-400); Red Blood Count 4.41 X10*6/uL (4.20-5.50); Red Cell Distribution Width 11.6 % (11.0-16.0); White Blood Count 5.8 X10*3/uL (4.8-10.8)
--- NOTE | 2022-09-25 15:16 | PC.NURSE ---
pt a&ox3, vss, reporting 4/10 pain at rest, increasing to 10/10 w spasms/movement. labs drawn, IV placed, pt requesting home medications - didn't take this am, med rec complete, pt pending ED provider. no new orders at this time.
[2022-09-25 15:20] LABS: Prothrombin Time 11.4 SEC (10.0-13.1)
[2022-09-25 15:30] LABS: Alanine Aminotransferase 25 U/L (0-31); Albumin Level 3.9 g/dL (3.5-5.0); Alkaline Phosphatase 87 U/L (39-117); Anion Gap 11 (12-20); Aspartate Amino Transferase 22 U/L (5-31); Bilirubin Total 0.9 mg/dL (0.0-1.0); Blood Urea Nitrogen 21 mg/dL (9-16); Calcium 9.1 mg/dL (8.4-10.2); Carbon Dioxide 26 mmol/L (22-29); Chloride 109 mmol/L (96-108); Creatinine Clr Calc Pharmacy 78.8; Estimated Glomerular Filt Rate > 60; Glucose Random 117 mg/dL (60-115); Lipase 24 U/L (8-78); Potassium 4.1 mmol/L (3.3-5.1); Sodium 142 mmol/L (135-145)
--- NOTE | 2022-09-25 16:36 | PHA.MEDREC ---
Pharmacy Consult ? Medication Reconciliation Pharmacy has completed the medication reconciliation. Reviewed med rec done by nursing
[2022-09-25] MEDS: Morphine Sulfate 4 MG/ML CARTRIDGE IVPUSH ×3 (16:46→18:56)
[2022-09-25] MEDS: Escitalopram Oxalate 5 MG TABLET 15 MG PO (16:46)
[2022-09-25] MEDS: Cyclobenzaprine HCl 10 MG TABLET PO (16:46)
[2022-09-25] MEDS: Ketorolac Tromethamine 15 MG/ML VIAL IVPUSH (16:46)
[2022-09-25] MEDS: amLODIPine Besylate 5 MG TABLET PO (16:46)
[2022-09-25] MEDS: Atorvastatin Calcium 10 MG TABLET PO (16:46)
--- NOTE | 2022-09-25 16:50 | ED_ITS ---
HPI - Back Pain/Injury General Chief Complaint: Back Pain/Injury Stated Complaint: R FLANK PAIN PER EMS Time Seen by Provider: 09/25/22 15:22 Source: patient Mode of arrival: EMS Limitations: no limitations History of Present Illness HPI Narrative: 62-year-old female who presents emergency department for evaluation of severe back pain. The patient states she has been having right lower back pain for approximately 8 days but the pain is been worse over the past 3 days. The patient does not recall any injury. She denies systemic symptoms such as fever, chills, fatigue, nausea, vomiting, diarrhea. The pain is located in her right flank/lower back area. She states the pain is a constant, dull ache which ra nges from 11/21 to 05/23. She denied numbness or weakness of her lower extremities. She denied loss of bowel or bladder control. The pain is significantly worse with movement especially with movement of her right lower extremity. She states she gets severe spasm in her back to the point where she is unable to move. Her states the pain was severe, therefore he called an ambulance and the patient was transported to the emergency department for evaluation. She was seen here in the emergency department on 09/22/2022 (4 days prior). At the time, the provider work the patient up for possible kidney stone, CT scan revealed no ureteral stones but did reveal an incidental pelvic mass which on ultrasound was more consistent with a uterine fibroid (the patient did have a partial hysterectomy for fibroids in the past). The patient did have improvement of her pain at the time of discharge and was started on ketorolac and Valium which she states is given her some relief however the pain today was severe and she had to come back to the emergency department for re-evaluation CT scan from 09/22/2022 did revealed the following regarding lumbar spine: ?OSSEOUS STRUCTURES: Levoconvex scoliotic curvature the thoracolumbar spine with multilevel eccentric degenerative disc disease in lower lumbar facet arthrosis. No acute fracture or suspicious appearing osseous lesion. ? Related Data Home Medications Medication Instructions Recorded Confirmed amlodipine 5 mg tablet 1 tab PO DAILY 09/25/22 09/25/22 atorvastatin 10 mg tablet 1 tab PO DAILY 09/25/22 09/25/22 escitalopram oxalate 10 mg tablet 1.5 tab PO DAILY 09/25/22 09/25/22 olmesartan 40 mg tablet 1 tab PO DAILY 09/25/22 09/25/22 Previous Rx's Medication Instructions Recorded diazepam 5 mg tablet (Valium) 5 mg PO TID PRN muscle spasm #15 09/22/22 tabs ketorolac 10 mg tablet 10 mg PO Q8H PRN pain #20 tabs 09/22/22 lidocaine 5 % topical patch 1 patch topical DAILY #15 ea 09/22/22 (Lidoderm) Allergies Allergy/AdvReac Type Severity Reaction Status Date / Time No Known Allergies Allergy Verified 09/25/22 14:26 Review of Systems Review of Systems: Yes all other systems are reviewed and are negative [facility] Past Medical History [facility] Narrative: Past medical history: Hypertension, hyperlipidemia, vitamin-D deficiency, depression. Past surgical history: Micro disc surgery C5-C6 20 years prior, partial hysterectomy. Social history: The patient smokes 1/2 pack of cigarettes per day times 30 years. She drinks 1 bottle of wine per day. She does smoke marijuana occasionally. Social History Social History Advance Directives: No Advance Directives Information Provided: Yes Physical Exam Vital Signs: Vital Signs: Last Vital Signs Temp 98.3 F 09/25/22 17:15 Pulse 62 09/25/22 17:15 Resp 16 09/25/22 17:15 BP 145/76 H 09/25/22 17:15 Pulse Ox 98 09/25/22 17:15 O2 Del Method 09/25/22 17:15 BMI result Body Mass Index 28.3 Vital signs were normal General: Awake, alert, female patient she does not appear to be in distress if she lies still however any attempt to sit up or roll on her side causes severe pain and spasm to her right lower back HEENT: Head normal cephalic atraumatic, pupils equal round reactive light, sclera contact however normal Neck: Supple, no tenderness Lungs: Clear to auscultation Heart: Regular rate rhythm, normal S1-S2 no murmurs rubs gallops Abdomen: Soft, nontender, nondistended, normoactive bowel sounds Back: Patient has significant paraspinal tenderness with spasm in the lumbar sacral region on the right, she has negative straight leg raises bilaterally Neuro cranial nerves intact strength symmetric bilaterally Medications Administered Generic Name Dose Route Start Last Admin Trade Name Freq PRN Reason Stop Dose Admin Amlodipine Besylate 5 mg 09/25/22 16:45 09/25/22 16:46 Amlodipine Besylate 5 Mg Tablet PO 5 mg DAILY RISHABH Administration Protocol Atorvastatin Calcium 10 mg 09/25/22 16:45 09/25/22 16:46 Atorvastatin Calcium 10 Mg Tablet PO 10 mg DAILY RISHABH Administration Escitalopram Oxalate 15 mg 09/25/22 16:45 09/25/22 16:46 Escitalopram Oxalate 5 Mg Tablet PO 15 mg DAILY RISHABH Administration Discontinued Medications Generic Name Dose Route Start Last Admin Trade Name Grant PRN Reason Stop Dose Admin Cyclobenzaprine HCl 10 mg 09/25/22 16:15 09/25/22 16:46 Cyclobenzaprine Hcl 10 Mg Tablet PO 09/25/22 16:16 10 mg ONCE ONE Administration Ketorolac Tromethamine 15 mg 09/25/22 16:15 09/25/22 16:46 Ketorolac Tromethamine 15 Mg/Ml Vial IVPUSH 09/25/22 16:16 15 mg ONCE STA Administration Morphine Sulfate 4 mg 09/25/22 16:15 09/25/22 16:46 Morphine Sulfate 4 Mg/Ml Cartridge IVPUSH 09/25/22 16:16 4 mg ONCE STA Administration Protocol Medical Decision Making Medical Decision Making MDM Narrative: 62-year-old female who presents emergency department for evaluation of 8 days of right lower back pain worse times 3 days who was evaluated on 09/22/2022 diagnosed with strain of the lumbar back and pelvic mass. Patient was discharged with a prescription for Valium, lidocaine and Ketoralac tablets with no improvement of her pain. Her examination at this time is consistent with spasm of her lumbar sacral paraspinal muscles with a normal neurologic exam and no concerning systemic symptoms or focal neurologic findings. Did order laboratory evaluation includes CBC CMP lipase. She was ordered to get morphine 4 mg IV, Toradol 15 mg IV and cyclobenzaprine 10 mg orally. 1752: My independent interpretation patient's laboratory evaluation is as follows: CBC and CMP were normal. Patient got some relief with the above treatment, she however had significant pain and spasm with minimal movement still therefore she was given a 2nd dose of morphine 4 mg IV. Lab Data 09/25/22 15:08 09/25/22 15:08 Labs: Lab Results 09/25/22 09/25/22 09/25/22 Range/Units 15:08 15:08 15:08 WBC 5.8 (4.8-10.8) X10*3/uL RBC 4.41 (4.20-5.50) X10*6/uL Hgb 13.7 (12.0-16.0) g/dl Hct 41.4 (37.0-47.0) % MCV 93.9 (80.0-98.0) fL MCH 31.1 (27.0-33.0) pg MCHC 33.1 (31.0-35.0) g/dl RDW 11.6 (11.0-16.0) % Plt Count 205 (160-400) X10*3/uL MPV 10.1 (9.4-12.3) fL Immature Gran % (Auto) 0.3 (0.0-0.4) % Neut % (Auto) 77.6 H (45-73) % Lymph % (Auto) 12.0 L (20-40) % Williams % (Auto) 8.6 (2-11) % Eos % (Auto) 1.0 (0-4) % Baso % (Auto) 0.5 (0-2) % Lymph # (Auto) 0.7 L (1.2-4.9) X10*3/uL Williams # (Auto) 0.5 (0.1-1.2) X10*3/uL Eos # (Auto) 0.1 (0.0-0.4) X10*3/uL Baso # (Auto) 0.0 (0.0-0.2) X10*3/uL Abs Immat Gran (auto) 0.02 (0.00-0.03) X10*3/uL Absolute Neuts (auto) 4.5 (2.0-8.3) x10*3/uL Absolute Nucleated RBC 0.000 (0.0-0.012) X10*3/uL Nucleated RBC % (auto) 0.0 (0.0-0.2) /100WBC PT 11.4 (10.0-13.1) SEC INR 1.0 (0.9-1.1) Sodium 142 (135-145) mmol/L Potassium 4.1 (3.3-5.1) mmol/L Chloride 109 H (96-108) mmol/L Carbon Dioxide 26 (22-29) mmol/L Anion Gap 11 L (12-20) BUN 21 H (9-16) mg/dL Creatinine 0.74 (0.5-1.4) mg/dL Estim Creat Clear Calc 78.8 Estimated GFR > 60 Random Glucose 117 H (60-115) mg/dL Calcium 9.1 (8.4-10.2) mg/dL Magnesium 2.0 (1.6-2.6) mg/dL Total Bilirubin 0.9 (0.0-1.0) mg/dL AST 22 (5-31) U/L ALT 25 (0-31) U/L Alkaline Phosphatase 87 (39-117) U/L Total Protein 6.0 L (6.5-8.0) g/dL Albumin 3.9 (3.5-5.0) g/dL Lipase 24 (8-78) U/L Discharge Plan Discharge Clinical Impression: Lumbar back sprain, Spasm of lumbar paraspinous muscle Patient Disposition: Still a Patient Prescriptions: No Action atorvastatin 10 mg tablet 1 tab PO DAILY amlodipine 5 mg tablet 1 tab PO DAILY olmesartan 40 mg tablet 1 tab PO DAILY escitalopram oxalate 10 mg tablet 1.5 tab PO DAILY diazepam [Valium] 5 mg tablet 5 mg PO TID PRN (Reason: muscle spasm) Qty: 15 0RF lidocaine [Lidoderm] 5 % adhesive patch,medicated 1 patch topical DAILY Qty: 15 0RF Rx Instructions: leave on most painful area for up to 12 hrs ketorolac 10 mg tablet 10 mg PO Q8H PRN (Reason: pain) Qty: 20 0RF
--- NOTE | 2022-09-25 16:55 | PC.NURSE ---
pt medicated per provider order, pt reporting 4/10 pain at rest - worse w spasms/movement.
[2022-09-25 17:15] VITALS: BP 145/76; PULSE 62; RESP 16; TEMP 36.8; O2SAT 98
--- NOTE | 2022-09-25 17:15 | MHC.EDTECH ---
this pct assumed care of pt at 1500 ,vitals sign taken ,pt resting in bed .
[2022-09-25 18:30] LABS: Influenza A PCR NEGATIVE (Negative); Influenza B PCR NEGATIVE (Negative); Resp Syncy Virus RNA Qual PCR NEGATIVE (Negative); SARS COV2 PCR INHOUSE NEGATIVE (Negative)
--- NOTE | 2022-09-25 19:02 | PC.NURSE ---
pt medicated per provider order, pt reporting 2/10 pain at rest, with movement/spasms pain increasing to 10/10.
--- NOTE | 2022-09-25 20:27 | P.HPHOSP_ITS ---
History of Present Illness Date of Service: 09/25/22 Attending physician on admission: Teena Toscano Chief Complaint: Intractable back pain and spasms Pt is a 62-year-old female with a PMH significant for?HTN, HLD, depression, hx of scoliosis, horseback accident when young, nephrolithiasis, and micro discectomy and partial hysterectomy over 20 years ago who presents to the ED with severe back pain and spasms. Patient states that back spasm began 8 days ago which she was initially able to control through stretching. Pain initially began in her lower right back and then wrapped around her right hip. No nausea, vomiting, fever, chills. Did not radiate anywhere else. Symptoms eventually worsened and she began taking Motrin, which worked for another couple of days. On 09/22/2023 (4 days earlier), patient's pain was so severe and back spasms so bad that she presented to the emergency department here. Workup was negative for kidney stones, but CT scan revealed an incidental pelvic mass that a pelvic transvaginal ultrasound identified as most likely an uterine fibroid. Patient w as prescribed ketorolac and Valium, which helped for another couple of days until yesterday when the patient was in ?screaming pain? according to her . Patient was brought to the ED by ambulance this time. Patient notes that she has had back spasms for years which she controls mainly with core exercises, very occasionally with Motrin. Currently patient states that her pain is well controlled, though she still is experiencing a few occasional small back spasms. Patient denies any recent falls or trauma to her back, but notes she has tried to increase her activity lately by playing pool in dancing with her . Patient denies fever, chills, nausea, vomiting. Chest pain/pressure, palpitations. Denies shortness of breath. No numbness or tingling in her extremities, change to bowel or bladder habits, saddle anesthesia. In the ED labs were unremarkable. CT of abdomen/pelvis on 09/22/2022 was negative for nephrolithiasis, found a pelvic mass that a pelvic/transvaginal ultrasound identified is most likely a uterine fibroid. Pt was treated with morphine and cyclobenzaprine. Pt will be admitted to the hospital to observation for treatment of intractable back pain. Review of Systems Review of Systems: Lower right back pain wrapping around right hip Lower back spasms Denies dysuria, hematuria No fever, chills, nausea, vomiting No chest pain/pressure, palpitations Denies SOB PMFSH Social History Advance Directives: No Advance Directives Information Provided: Yes Meds Allergies Allergy/AdvReac Type Severity Reaction Status Date / Time No Known Allergies Allergy Verified 09/25/22 14:26 Active Medications: Current Medications Amlodipine Besylate (Amlodipine Besylate 5 Mg Tablet) 5 mg PO DAILY [facility]; Protocol Last Admin: 09/25/22 16:46 Dose: 5 mg Atorvastatin Calcium (Atorvastatin Calcium 10 Mg Tablet) 10 mg PO DAILY [facility] Last Admin: 09/25/22 16:46 Dose: 10 mg Cyclobenzaprine HCl (Cyclobenzaprine Hcl 10 Mg Tablet) 10 mg PO TID PRN PRN Reason: Muscle Spasm Enoxaparin Sodium (Enoxaparin Sodium 40 Mg/0.4 Ml Syringe) 40 mg SUBCUT Q24H [facility] Escitalopram Oxalate (Escitalopram Oxalate 5 Mg Tablet) 15 mg PO DAILY [facility] Last Admin: 09/25/22 16:46 Dose: 15 mg Morphine Sulfate (Morphine Sulfate 4 Mg/Ml Cartridge) 4 mg IVPUSH Q4H PRN; Protocol PRN Reason: Pain, Severe (Pain Scale 7-10) Sodium Chloride (0.9 % Sodium Chloride Flush 3 Ml Syringe) 3 ml IVFLUSH QSHIFT [facility] Home Medications Medication Instructions Recorded Confirmed Last Taken Type amlodipine 5 mg tablet 1 tab PO DAILY 09/25/22 09/25/22 09/24/22 09:00 History atorvastatin 10 mg tablet 1 tab PO DAILY 09/25/22 09/25/22 09/24/22 09:00 History escitalopram oxalate 10 mg tablet 1.5 tab PO DAILY 09/25/22 09/25/22 09/24/22 09:00 History olmesartan 40 mg tablet 1 tab PO DAILY 09/25/22 09/25/22 09/24/22 09:00 History Physical Exam Vital Signs and Narrative: Vital Signs: Last Vital Signs Temp 98.3 F 09/25/22 17:15 Pulse 62 09/25/22 17:15 Resp 16 09/25/22 17:15 BP 145/76 H 09/25/22 17:15 Pulse Ox 98 09/25/22 17:15 O2 Del Method 09/25/22 17:15 BMI result Body Mass Index 28.3 Constitutional: Alert, in no acute distress. Mental Status: Oriented to person, place and time. Eyes: Pupils are equal, round, and reactive to light. Ear, Nose, and Throat: Oropharynx clear, mucous membranes moist. Ears and nose without deformities. Trachea midline. Respiratory: Clear to auscultation bilaterally. No wheezing, rales, or rhonchi. Cardiovascular: S1, S2 regular. No murmurs, rubs, or gallops. Gastrointestinal: Abdomen soft, non-tender, non-distended. Normal bowel sounds. Neurologic: Cranial nerves II-XII are grossly intact. No focal neurological deficits. Moves all extremities spontaneously. Skin: No rashes or lesions noted. Musculoskeletal: No cyanosis or clubbing. Extremities: No edema. Psychiatric: Normal mood and affect. Results Labs 09/25/22 15:08 09/25/22 15:08 Labs: Laboratory Results - last 24 hr 09/25/22 09/25/22 09/25/22 15:08 15:08 15:08 MCV 93.9 MCH 31.1 MCHC 33.1 RDW 11.6 Plt Count 205 MPV 10.1 Immature Gran % (Auto) 0.3 Neut % (Auto) 77.6 H Lymph % (Auto) 12.0 L [place] % (Auto) 8.6 Eos % (Auto) 1.0 Baso % (Auto) 0.5 Lymph # (Auto) 0.7 L [place] # (Auto) 0.5 Eos # (Auto) 0.1 Baso # (Auto) 0.0 Abs Immat Gran (auto) 0.02 Absolute Neuts (auto) 4.5 Absolute Nucleated RBC 0.000 Nucleated RBC % (auto) 0.0 PT 11.4 INR 1.0 Anion Gap 11 L Estim Creat Clear Calc 78.8 Estimated GFR > 60 Random Glucose 117 H Calcium 9.1 Magnesium 2.0 Total Bilirubin 0.9 AST 22 ALT 25 Alkaline Phosphatase 87 Total Protein 6.0 L Albumin 3.9 Lipase 24 Influenza Type A (PCR) Influenza Type B (PCR) RSV RNA Qual (PCR) SARS-CoV-2 RNA (RT-PCR) 09/25/22 17:41 MCV MCH MCHC RDW Plt Count MPV Immature Gran % (Auto) Neut % (Auto) Lymph % (Auto) [place] % (Auto) Eos % (Auto) Baso % (Auto) Lymph # (Auto) [place] # (Auto) Eos # (Auto) Baso # (Auto) Abs Immat Gran (auto) Absolute Neuts (auto) Absolute Nucleated RBC Nucleated RBC % (auto) PT INR Anion Gap Estim Creat Clear Calc Estimated GFR Random Glucose Calcium Magnesium Total Bilirubin AST ALT Alkaline Phosphatase Total Protein Albumin Lipase Influenza Type A (PCR) NEGATIVE Influenza Type B (PCR) NEGATIVE RSV RNA Qual (PCR) NEGATIVE SARS-CoV-2 RNA (RT-PCR) NEGATIVE Assessment and Plan (1) Spasm of lumbar paraspinous muscle: Status: Acute (2) Back pain: Status: Acute Plan Pt is a 62-year-old female with a PMH significant for?HTN, HLD, depression, hx of scoliosis, horseback accident when young, nephrolithiasis, and micro discectomy and partial hysterectomy over 20 years ago who presents to the ED with severe back pain and spasms. Pt will be admitted to the hospital to observation for treatment of intractable back pain. Intractable back pain and back spasms Morphine 4 mg IV q4 p.r.n. Cyclobenzaprine 10 mg p.o. 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 Montague DVT Prophylaxis: Lovenox Pt will be admitted to the hospital to observation for treatment of intractable back pain. Time Spent With Patient Time: Total time managing care of this patient today ____ minutes. Quality Stroke Does the patient have a stroke diagnosis?: No VTE Prior VTE?: No VTE Risk Level:: Medical - moderate - high VTE Device Contraindication: Treatment Not Indicated VTE Drug Contraindication: N/A - Med Ordered
--- NOTE | 2022-09-25 22:00 | PC.NURSE ---
attempted to call in report to S3, no answer, RN supervisor stage carpentry to attempt to reach RN to call ED for report.
--- NOTE | 2022-09-25 22:08 | PC.NURSE ---
RN-RN report called into S3. pt pending transport.
[2022-09-25] MEDS: Enoxaparin Sodium 40 MG/0.4 ML SYRINGE SUBCUT (22:37)
[2022-09-25] MEDS: 0.9 % Sodium Chloride Flush 3 ML SYRINGE IVFLUSH (22:37)
[2022-09-25 22:41] VITALS: BMI 25.7
[2022-09-25 23:26] VITALS: BP 147/75; PULSE 51; RESP 16; TEMP 36.4; O2SAT 96
[2022-09-26] MEDS: Morphine Sulfate 4 MG/ML CARTRIDGE IVPUSH ×4 (03:12→19:51)
[2022-09-26 03:20] VITALS: BP 135/69; PULSE 55; RESP 16; TEMP 36.3; O2SAT 96
[2022-09-26 04:05] VITALS: RESP 16
--- NOTE | 2022-09-26 07:16 | PHA.MEDREC ---
Pharmacy Consult ? Medication Reconciliation Pharmacy has reviewed the medication reconciliation.
[2022-09-26 08:00] VITALS: BP 142/66; PULSE 57; RESP 18; TEMP 36.3; O2SAT 93
[2022-09-26] MEDS: amLODIPine Besylate 5 MG TABLET PO (08:17)
[2022-09-26] MEDS: Atorvastatin Calcium 10 MG TABLET PO (08:17)
[2022-09-26] MEDS: Escitalopram Oxalate 5 MG TABLET 15 MG PO (08:17)
[2022-09-26] MEDS: Cyclobenzaprine HCl 10 MG TABLET PO ×2 (08:17→17:24)
[2022-09-26] MEDS: 0.9 % Sodium Chloride Flush 3 ML SYRINGE IVFLUSH ×3 (08:19→19:49)
[2022-09-26 10:44] VITALS: BP 142/66; PULSE 57; O2SAT 93
[2022-09-26] MEDS: Omeprazole 20 MG CAPSULE.DR PO ×2 (10:56→15:55)
--- NOTE | 2022-09-26 11:19 | MHC.CM.PN ---
Addendum entered by Caryn Bejarano 09/26/22 11:24: CORRECTION: DCP IS HOME WITH OUTPATIENT PT SERVICES Original Note: PT LIVES WITH HER AND IS INDEPENDENT WITH ALL CARE PT HAS NO DME AND NO SERVICES PT WILL COMPLETE A HCP TODAY NAMING HER AND SISTER HER AGENTS COVID VAX + PCP: LOIS [facility] OBSERVATION NOTICE DELIVERED CURRENT DC PLAN IS HOME WITH NO SERVICES TO TRANSPORT
--- NOTE | 2022-09-26 11:21 | HO.PM.IMPN ---
Subjective Subjective Date of Service: 09/26/22 Interval History: Intractable back pain and spasms Review of Systems still has significant pain with walkin Denies any nausea or vomiting or abdominal pain or fever or chills. Physical Exam Vital Signs: Vital Signs: Last Vital Signs Temp 97.3 F 09/26/22 08:00 Pulse 57 09/26/22 10:44 Resp 18 09/26/22 08:00 BP 142/66 H 09/26/22 10:44 Pulse Ox 93 09/26/22 10:44 O2 Del Method 09/26/22 08:00 BMI result Body Mass Index 25.7 Appearance: Alert.? Oriented X3.?has back pain cvs: rrr, [id number] , no murmur res: clear to auscultation ,no rhonchii or wheezing abd: no rebound or guarding ,nt, bs present. ext pulses present , no cyanosis . neuro: axo3 , moves all ext Objective Data Active Medications Amlodipine Besylate (Amlodipine Besylate 5 Mg Tablet) 5 mg PO DAILY [facility]; Protocol Last Admin: 09/26/22 08:17 Dose: 5 mg Documented By: LORENA Atorvastatin Calcium (Atorvastatin Calcium 10 Mg Tablet) 10 mg PO DAILY [facility] Last Admin: 09/26/22 08:17 Dose: 10 mg Documented By: LORENA Cyclobenzaprine HCl (Cyclobenzaprine Hcl 10 Mg Tablet) 10 mg PO TID PRN PRN Reason: Muscle Spasm Last Admin: 09/26/22 08:17 Dose: 10 mg Documented By: LORENA Diazepam (Diazepam 5 Mg Tablet) 5 mg PO TID PRN PRN Reason: muscle spasm Docusate Sodium (Docusate Sodium 100 Mg Capsule) 100 mg PO BEDTIME PRN PRN Reason: Constipation Enoxaparin Sodium (Enoxaparin Sodium 40 Mg/0.4 Ml Syringe) 40 mg SUBCUT Q24H [facility] Last Admin: 09/25/22 22:37 Dose: 40 mg Documented By: KAYLIE Escitalopram Oxalate (Escitalopram Oxalate 5 Mg Tablet) 15 mg PO DAILY [facility] Last Admin: 09/26/22 08:17 Dose: 15 mg Documented By: LORENA Morphine Sulfate (Morphine Sulfate 4 Mg/Ml Cartridge) 4 mg IVPUSH Q4H PRN; Protocol PRN Reason: Pain, Severe (Pain Scale 7-10) Last Admin: 09/26/22 08:18 Dose: 4 mg Documented By: LORENA Omeprazole (Omeprazole 20 Mg Capsule.) 20 mg PO BID@0630,1610 [facility] Last Admin: 09/26/22 10:56 Dose: 20 mg Documented By: LORENA Sodium Chloride (0.9 % Sodium Chloride Flush 3 Ml Syringe) 3 ml IVFLUSH QSHIFT [facility] Last Admin: 09/26/22 08:19 Dose: 3 ml Documented By: LORENA Labs 09/25/22 15:08 09/25/22 15:08 Labs: Laboratory Results - last 24 hr 09/25/22 09/25/22 09/25/22 15:08 15:08 15:08 MCV 93.9 MCH 31.1 MCHC 33.1 RDW 11.6 Plt Count 205 MPV 10.1 Immature Gran % (Auto) 0.3 Neut % (Auto) 77.6 H Lymph % (Auto) 12.0 L [place] % (Auto) 8.6 Eos % (Auto) 1.0 Baso % (Auto) 0.5 Lymph # (Auto) 0.7 L [place] # (Auto) 0.5 Eos # (Auto) 0.1 Baso # (Auto) 0.0 Abs Immat Gran (auto) 0.02 Absolute Neuts (auto) 4.5 Absolute Nucleated RBC 0.000 Nucleated RBC % (auto) 0.0 PT 11.4 INR 1.0 Anion Gap 11 L Estim Creat Clear Calc 78.8 Estimated GFR > 60 Random Glucose 117 H Calcium 9.1 Magnesium 2.0 Total Bilirubin 0.9 AST 22 ALT 25 Alkaline Phosphatase 87 Total Protein 6.0 L Albumin 3.9 Lipase 24 Influenza Type A (PCR) Influenza Type B (PCR) RSV RNA Qual (PCR) SARS-CoV-2 RNA (RT-PCR) 09/25/22 17:41 MCV MCH MCHC RDW Plt Count MPV Immature Gran % (Auto) Neut % (Auto) Lymph % (Auto) [place] % (Auto) Eos % (Auto) Baso % (Auto) Lymph # (Auto) [place] # (Auto) Eos # (Auto) Baso # (Auto) Abs Immat Gran (auto) Absolute Neuts (auto) Absolute Nucleated RBC Nucleated RBC % (auto) PT INR Anion Gap Estim Creat Clear Calc Estimated GFR Random Glucose Calcium Magnesium Total Bilirubin AST ALT Alkaline Phosphatase Total Protein Albumin Lipase Influenza Type A (PCR) NEGATIVE Influenza Type B (PCR) NEGATIVE RSV RNA Qual (PCR) NEGATIVE SARS-CoV-2 RNA (RT-PCR) NEGATIVE Assessment and Plan (1) Back pain: Status: Acute (2) Lumbar back sprain: Status: Acute (3) Pelvic mass: Status: Acute Plan 62-year-old female with a PMH significant for?HTN, HLD, depression, hx of scoliosis, horseback accident when young, nephrolithiasis, and micro discectomy and partial hysterectomy over 20 years ago who presents to the ED with severe back pain and spasms. Pt will be admitted to the hospital to observation for treatment of intractable back pain. Intractable back pain and back spasms Morphine 4 mg IV q4 p.r.n. Cyclobenzaprine 10 mg p.o. 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 Quality Stroke Does the patient have a stroke diagnosis?: No VTE Prior VTE?: No VTE Risk Level:: Medical - moderate - high VTE Device Contraindication: Treatment Not Indicated VTE Drug Contraindication: N/A - Med Ordered
[2022-09-26 15:50] VITALS: BP 134/73; PULSE 57; RESP 18; TEMP 36.9; O2SAT 97
[2022-09-26] MEDS: diazePAM 5 MG TABLET PO (18:55)
[2022-09-26 19:14] VITALS: BP 142/72; PULSE 58; RESP 17; TEMP 36.6; O2SAT 94
[2022-09-26] MEDS: Enoxaparin Sodium 40 MG/0.4 ML SYRINGE SUBCUT (19:48)
[2022-09-26 20:16] LABS: Appearance Urine Clear; Color Urine Yellow; Glucose Urine UA Negative (Negative); Leukocyte Esterase Urine Negative (Negative); Nitrite Urine Negative (Negative); PH 5.5 (5.0-9.0); Urine Blood Negative (Negative); Urine Ketones Negative (Negative); Urine Protein Negative (Neg-Trace)
[2022-09-27 03:43] VITALS: BP 122/61; PULSE 61; RESP 16; TEMP 36.4; O2SAT 94
[2022-09-27] MEDS: Omeprazole 20 MG CAPSULE.DR PO ×2 (05:47→15:17)
[2022-09-27] MEDS: Morphine Sulfate 4 MG/ML CARTRIDGE IVPUSH ×2 (05:56→12:40)
[2022-09-27] MEDS: Cyclobenzaprine HCl 10 MG TABLET PO ×2 (07:26→14:07)
[2022-09-27] MEDS: Escitalopram Oxalate 5 MG TABLET 15 MG PO (07:26)
[2022-09-27] MEDS: diazePAM 5 MG TABLET PO ×3 (07:27→21:56)
[2022-09-27] MEDS: Atorvastatin Calcium 10 MG TABLET PO (07:27)
[2022-09-27] MEDS: amLODIPine Besylate 5 MG TABLET PO (07:27)
[2022-09-27] MEDS: 0.9 % Sodium Chloride Flush 3 ML SYRINGE IVFLUSH ×3 (07:28→21:54)
--- NOTE | 2022-09-27 07:37 | P.DS_ITS ---
DS: Providers Provider Date of Service: 09/27/22 Date of admission: 09/25/22 20:14 Primary care physician: Liz Hong NP DS: Diagnosis Discharge Diagnosis (1) Back pain: Status: Acute (2) Lumbar back sprain: Status: Acute (3) Pelvic mass: Status: Acute DS: Summary Hospital Course Hospital Course: 62-year-old female with a PMH significant for?HTN, HLD, depression, hx of scoliosis, horseback accident when young, nephrolithiasis, and micro discectomy and partial hysterectomy over 20 years ago who presents to the ED with severe back pain and spasms.? Patient states that back spasm began 8 days ago which she was initially able to control through stretching.? Pain initially began in her lower right back and then wrapped around her right hip.? No nausea, vomiting, fever, chills.? Did not radiate anywhere else.? Symptoms eventually worsened and she began taking Motrin, which worked for another couple of days.? On 09/22/2023 (4 days earlier), patient's pain was so severe and back spasms so bad that she presented to the emergency department here.? Workup was negative for kidney stones, but CT scan revealed an incidental pelvic mass that a pelvic transvaginal ultrasound identified as most likely an uterine fibroid.? Patient was prescribed ketorolac and Valium, which helped for another couple of days until yesterday when the patient was in ?screaming pain? according to her .? Patient was brought to the ED by ambulance this time.? Patient notes that she has had back spasms for years which she controls mainly with core exercises, very occasionally with Motrin.? Currently patient states that her pain is well controlled, though she still is experiencing a few occasional small back spasms.? Patient denies any recent falls or trauma to her back, but notes she has tried to increase her activity lately by playing pool in dancing with her .? Patient denies fever, chills, nausea, vomiting.? Chest pain/pressure, palpitations.? Denies shortness of breath.? No numbness or tingling in her extremities, change to bowel or bladder habits, saddle anesthesia. In the ED labs were unremarkable. CT of abdomen/pelvis on 09/22/2022 was negative for nephrolithiasis, found a pelvic mass that a pelvic/transvaginal ultrasound identified is most likely a uterine fibroid. Pt was treated with morphine and cyclobenzaprine. Pt will be admitted to the hospital to observation for treatment of intractable back pain. hospital course: Patient admitted for patient intractable back pain and spasm-has history of multilevel eccentric degenerative disc disease in lower lumbar facet arthrosis.? , alsomicro discectomy and partial hysterectomy over 20 years ago who presents to severe back pain and spasms( she says she starined due to excessive excersion)-given pain medication and muscle relaxants seems to be improving-going home continue muscle relaxant and pain medications at home. 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 Follow-up with PCP outpatient.Patient to follow-up out outpatient with OBGYN. Above management discussed the patient detail and she understand and agreement with the above plan, time spent 50 minute. Time Spent with Patient Time attestation: Total time managing care of this patient today ____ minutes. Discharge coordination time: Greater than 30 minutes Quality: Safe Use of Opioids Does Pt have an Active Cancer Diagnosis on the Problem List?: No Quality: Stroke Does the patient have a stroke diagnosis?: No Physical Exam Vital Signs: Vital Signs: Last Vital Signs Temp 97.6 F 09/27/22 03:43 Pulse 61 09/27/22 03:43 Resp 16 09/27/22 03:43 BP 122/61 09/27/22 03:43 Pulse Ox 94 09/27/22 03:43 O2 Del Method 09/27/22 03:43 BMI result Body Mass Index 25.7 Appearance: Alert.? Oriented X3.?has back pain cvs: rrr, [id number] , no murmur res: clear to auscultation ,no rhonchii or wheezing abd: no rebound or guarding ,nt, bs present. ext pulses present , no cyanosis . neuro: axo3 , moves all ext DS: Data Data Completed and Pending Labs on day of discharge: Laboratory Results - last 24 hr 09/26/22 19:55 Urine Color Yellow Urine Appearance Clear Urine pH 5.5 Ur Specific [place] 1.010 Urine Protein Negative Urine Glucose (UA) Negative Urine Ketones Negative Urine Blood Negative Urine Nitrite Negative Ur Leukocyte Esterase Negative Discharge Plan Discharge Patient Disposition: Home, Self-Care Discharge Diagnosis: back pain Referrals: Liz Hong, JOE [Primary Care Provider] - 1 Week Discharge Medications: New omeprazole 20 mg Capsule,Delayed Release(Dr/Ec) 20 mg PO BID@0630,1630 Qty: 30 0RF oxycodone 5 mg capsule 5 mg PO BID PRN (Reason: pain) Qty: 6 0RF Rx Instructions: Partial Fill upon patient request. Continued atorvastatin 10 mg tablet 1 tab PO DAILY amlodipine 5 mg tablet 1 tab PO DAILY olmesartan 40 mg tablet 1 tab PO DAILY escitalopram oxalate 10 mg tablet 1.5 tab PO DAILY cyclobenzaprine 10 mg tablet 1 tab PO TID diazepam [Valium] 5 mg tablet 5 mg PO TID PRN (Reason: muscle spasm) Qty: 15 0RF lidocaine [Lidoderm] 5 % adhesive patch,medicated 1 patch topical DAILY Qty: 15 0RF Rx Instructions: leave on most painful area for up to 12 hrs ketorolac 10 mg tablet 10 mg PO Q8H PRN (Reason: pain) Qty: 20 0RF Discharge Orders: Discharge Order (Routine); Ordered 09/27/22 Ordered By: Agustin Dee Diet: Advance to usual diet Activity on Discharge: As tolerated Stand Alone Forms: Patient Portal Discharge page Care Plan Goals: ` Health Concerns: Patient admitted for patient intractable back pain and spasm-has history of multilevel eccentric degenerative disc disease in lower lumbar facet arthrosis.? , alsomicro discectomy and partial hysterectomy over 20 years ago who presents to severe back pain and spasms-given pain medication and muscle relaxants seems to be improving-going home continue muscle relaxant and pain medications at home. Follow-up with PCP outpatient.Patient to follow-up out outpatient with OBGYN. Plan of Treatment: as above. Assessment: as above.
[2022-09-27 08:00] VITALS: BP 121/64; PULSE 59; RESP 18; TEMP 36.7; O2SAT 92
--- NOTE | 2022-09-27 09:05 | MHC.CM.PN ---
Addendum entered by Merced Wilhelm RN 09/28/22 11:18: ADDENDUM ON 09/27/22 ENTERED IN ERROR. Addendum entered by Merced Wilhelm RN 09/27/22 14:38: PER HOSPITALIST D/C CANCELLED D/T ID RECOMMENDING 1-2 DAYS OF LEVAQUIN AND IF TOLERATING PT CAN RETURN HOME W/SCRIPT FOR 2WK SUPPLY, CM WILL CONT TO FOLLOW. Original Note: PER HOSPITALIST PT WILL BE MEDICALLY CLEARED FOR D/C TODAY HOME SELF CARE, CM MET W/PT AND SHE WILL ARRANGE TRANSPORT.
--- NOTE | 2022-09-27 11:30 | HO.PM.IMPN ---
Subjective Subjective Date of Service: 09/28/22 Interval History: Radicular pain Review of Systems Patient is saying is limiting her motion, has persistent pain. Denies denies any chest pain or shortness of breath or abdominal pain or fever or chills or cough or phlegm Physical Exam Vital Signs: Vital Signs: Last Vital Signs Temp 98.1 F 09/27/22 08:00 Pulse 59 09/27/22 08:00 Resp 18 09/27/22 08:00 BP 121/64 09/27/22 08:00 Pulse Ox 92 09/27/22 08:00 O2 Del Method 09/27/22 08:00 BMI result Body Mass Index 25.7 Appearance: Alert.? Oriented X3.?has back pain cvs: rrr, [id number] , no murmur res: clear to auscultation ,no rhonchii or wheezing abd: no rebound or guarding ,nt, bs present. ext pulses present , no cyanosis . neuro: axo3 , moves all ext Objective Data Active Medications Amlodipine Besylate (Amlodipine Besylate 5 Mg Tablet) 5 mg PO DAILY REPLACED BY [facility]; Protocol Last Admin: 09/27/22 07:27 Dose: 5 mg Documented By: ISRAEL Atorvastatin Calcium (Atorvastatin Calcium 10 Mg Tablet) 10 mg PO DAILY REPLACED BY [facility] Last Admin: 09/27/22 07:27 Dose: 10 mg Documented By: ISRAEL Cyclobenzaprine HCl (Cyclobenzaprine Hcl 10 Mg Tablet) 10 mg PO TID PRN PRN Reason: Muscle Spasm Last Admin: 09/27/22 07:26 Dose: 10 mg Documented By: ISRAEL Diazepam (Diazepam 5 Mg Tablet) 5 mg PO TID PRN PRN Reason: muscle spasm Last Admin: 09/27/22 07:27 Dose: 5 mg Documented By: ISRAEL Docusate Sodium (Docusate Sodium 100 Mg Capsule) 100 mg PO BEDTIME PRN PRN Reason: Constipation Enoxaparin Sodium (Enoxaparin Sodium 40 Mg/0.4 Ml Syringe) 40 mg SUBCUT Q24H REPLACED BY [facility] Last Admin: 09/26/22 19:48 Dose: 40 mg Documented By: LYSRashard Escitalopram Oxalate (Escitalopram Oxalate 5 Mg Tablet) 15 mg PO DAILY REPLACED BY [facility] Last Admin: 02/14/23 07:26 Dose: 15 mg Documented By: ISRAEL Morphine Sulfate (Morphine Sulfate 4 Mg/Ml Cartridge) 4 mg IVPUSH Q4H PRN; Protocol PRN Reason: Pain, Severe (Pain Scale 7-10) Last Admin: 09/27/22 05:56 Dose: 4 mg Documented By: WALTER Omeprazole (Omeprazole 20 Mg Capsule.Dr) 20 mg PO BID@0630,1630 REPLACED BY [facility] Last Admin: 09/27/22 05:47 Dose: 20 mg Documented By: WALTER Sodium Chloride (0.9 % Sodium Chloride Flush 3 Ml Syringe) 3 ml IVFLUSH QSHIFT REPLACED BY [facility] Last Admin: 09/27/22 07:28 Dose: 3 ml Documented By: ISRAEL Labs 09/25/22 15:08 09/25/22 15:08 Labs: Laboratory Results - last 24 hr 09/26/22 19:55 Urine Color Yellow Urine Appearance Clear Urine pH 5.5 Ur Specific [place] 1.010 Urine Protein Negative Urine Glucose (UA) Negative Urine Ketones Negative Urine Blood Negative Urine Nitrite Negative Ur Leukocyte Esterase Negative Assessment and Plan (1) Back pain: Status: Acute (2) Lumbar back sprain: Status: Acute (3) Pelvic mass: Status: Acute Plan 62-year-old female with a PMH significant for?HTN, HLD, depression, hx of scoliosis, horseback accident when young, nephrolithiasis, and micro discectomy and partial hysterectomy over 20 years ago who presents to the ED with severe back pain and spasms. Pt will be admitted to the hospital to observation for treatment of intractable back pain. Intractable back pain and back spasms Morphine 4 mg IV q4 p.r.n.,Cyclobenzaprine 10 mg p.o. tid prn, nsaids ,ppi patient says -he has pain limiting walkin,also unable to sit down mri L spine added , neurochecks ,neuro eval added. 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 Time Spent With Patient Time: Total time managing care of this patient today ____ minutes. Quality Stroke Does the patient have a stroke diagnosis?: No VTE Prior VTE?: No VTE Risk Level:: Medical - moderate - high VTE Device Contraindication: Treatment Not Indicated VTE Drug Contraindication: N/A - Med Ordered
[2022-09-27] MEDS: Ibuprofen 400 MG TABLET PO (14:07)
--- NOTE | 2022-09-27 15:02 | PC.NURSE ---
MRI screening form complete and faxed down to MRI at this time.
[2022-09-27 15:03] VITALS: BP 137/67; PULSE 56; RESP 18; TEMP 36.9; O2SAT 93
--- NOTE | 2022-09-27 17:06 | P.CNNE_ITS ---
History of Present Illness Data of Consult Service Date: 09/27/22 Primary Care Provider: Liz Hong NP HPI Reason for consult: severe back pain x9 days This is a 62-year-old female with a h/o ?HTN, HLD, depression, scoliosis, horseback accident when young, nephrolithiasis, and C5-6 micro discectomy 20 +yrs ago and partial hysterectomy over 20 years ago who presents to the ED with severe lower back pain and spasms for 9 days.? Patient states that back spasm began 9 days ago , and she was initially able to control through stretching.? Pain initially began in her lower right back and then wrapped around her right hip.? No nausea, vomiting, fever, chills.? No pain down the leg. No weakness or numbness. On 09/22/2023 pain was so severe and back spasms so bad that she presented to the emergency department here.? Workup was negative for kidney stones, but CT scan revealed an incidental pelvic mass that a pelvic transvaginal ultrasound identified as most likely an uterine fibroid.? Patient was prescribed ketorolac and Valium, which helped for another couple of days until yesterday when the patient was in ?screaming pain? according to her .? Patient was brought to the ED by ambulance this time.? Patient notes that she has had minor back spasms for years which she controls mainly with core exercises, very occasionally with Motrin.? Currently patient states that her pain is well controlled as long as sh eis in bed and medicated Review of Systems Review of Systems: Patient is saying is limiting her motion, has persistent pain. Denies denies any chest pain or shortness of breath or abdominal pain or fever or chills or cough or phlegm Yes all other systems are reviewed and are negative [facility] Social History Social History Household Members: Spouse Housing: House Patient Tobacco Use Status: Former Tobacco user Tobacco use type: Cigarette Cigarettes Per Day: 10 Smoked in Last 30 Days: Yes Patient Interested in Nicotine Replacement: No Patient Given Instructions on How to Stop Smoking: Yes Date Education Initiated: 09/25/22 Use of substances other than those prescribed or required for medical reasons: No Currently Displaying Signs/Symptoms of Drug Intoxication Withdrawal: No Have you been hit, kicked, punched, or otherwise hurt by someone within the past year? If so, by whom?: No Do you feel safe in your current relationship?: Yes Is there a partner from a previous relationship who is making you feel unsafe now?: No Are you made to feel afraid or neglected: No Advance Directives: No Advance Directives Information Provided: Yes Advance Directives on File: Yes Do you have thoughts of harming others: None Do you have a plan to hurt others: No Plan Recently lost weight without trying: No Nutrition Risks: No Nutritional Risk Patient : No : No service: No Current occupational status: employed Meds Allergies Allergy/AdvReac Type Severity Reaction Status Date / Time No Known Allergies Allergy Verified 09/25/22 14:26 Active Medications: Current Medications Amlodipine Besylate (Amlodipine Besylate 5 Mg Tablet) 5 mg PO DAILY [facility]; Protocol Last Admin: 09/27/22 07:27 Dose: 5 mg Atorvastatin Calcium (Atorvastatin Calcium 10 Mg Tablet) 10 mg PO DAILY [facility] Last Admin: 09/27/22 07:27 Dose: 10 mg Cyclobenzaprine HCl (Cyclobenzaprine Hcl 10 Mg Tablet) 10 mg PO TID PRN PRN Reason: Muscle Spasm Last Admin: 09/27/22 14:07 Dose: 10 mg Diazepam (Diazepam 5 Mg Tablet) 5 mg PO TID PRN PRN Reason: muscle spasm Last Admin: 09/27/22 14:07 Dose: 5 mg Docusate Sodium (Docusate Sodium 100 Mg Capsule) 100 mg PO BEDTIME PRN PRN Reason: Constipation Enoxaparin Sodium (Enoxaparin Sodium 40 Mg/0.4 Ml Syringe) 40 mg SUBCUT Q24H [facility] Last Admin: 09/26/22 19:48 Dose: 40 mg Escitalopram Oxalate (Escitalopram Oxalate 5 Mg Tablet) 15 mg PO DAILY [facility] Last Admin: 09/27/22 07:26 Dose: 15 mg Ibuprofen (Ibuprofen 400 Mg Tablet) 400 mg PO Q6H [facility] Last Admin: 09/27/22 14:07 Dose: 400 mg Morphine Sulfate (Morphine Sulfate 4 Mg/Ml Cartridge) 4 mg IVPUSH Q4H PRN; Protocol PRN Reason: Pain, Severe (Pain Scale 7-10) Last Admin: 09/27/22 12:40 Dose: 4 mg Omeprazole (Omeprazole 20 Mg Capsule.Dr) 20 mg PO BID@0630,1630 [facility] Last Admin: 09/27/22 15:17 Dose: 20 mg Prednisone (Prednisone 20 Mg Tablet) 60 mg PO DAILY [facility] Sodium Chloride (0.9 % Sodium Chloride Flush 3 Ml Syringe) 3 ml IVFLUSH QSHIFT [facility] Last Admin: 09/27/22 15:17 Dose: 3 ml Home Medications Medication Instructions Recorded Confirmed Last Taken Type amlodipine 5 mg tablet 1 tab PO DAILY 09/25/22 09/25/22 09/24/22 09:00 History atorvastatin 10 mg tablet 1 tab PO DAILY 09/25/22 09/25/22 09/24/22 09:00 History escitalopram oxalate 10 mg tablet 1.5 tab PO DAILY 09/25/22 09/25/22 09/24/22 09:00 History olmesartan 40 mg tablet 1 tab PO DAILY 09/25/22 09/25/22 09/24/22 09:00 History cyclobenzaprine 10 mg tablet 1 tab PO TID 09/26/22 09/26/22 Unknown History Physical Exam Vital Signs: Vital Signs: Last Vital Signs Temp 98.4 F 09/27/22 15:03 Pulse 56 09/27/22 15:03 Resp 18 09/27/22 15:03 BP 137/67 09/27/22 15:03 Pulse Ox 93 09/27/22 15:03 O2 Del Method 09/27/22 15:03 BMI result Body Mass Index 25.7 Neuro: Other: Normal. Slight diminution of right ankle reflex. SLR 90 degrees Plantar Reflex Responses: equivocal: bilateral Results Labs 09/25/22 15:08 09/25/22 15:08 Labs: Urine 09/26/22 Range/Units 19:55 Urine Color Yellow Urine Appearance Clear Urine pH 5.5 (5.0-9.0) Ur Specific [place] 1.010 (1.005-1.025) Urine Protein Negative (Neg-Trace) mg/dL Urine Glucose (UA) Negative (Negative) mg/dL Assessment and Plan (1) Back pain: Status: Acute Probable right paracentral disc herniation at L5-S1. Recom. : MRI LS spine. Prednisone 60mg/ day x 3 days, 40mg/d x 3 days, 20mg/d x3 days (2) Lumbar back sprain: Qualifiers: Encounter type: subsequent encounter Qualified Code(s): S33.5XXD - Sprain of ligaments of lumbar spine, subsequent encounter Status: Acute (3) Pelvic mass: Status: Acute Plan 62-year-old female with a PMH significant for?HTN, HLD, depression, hx of scoliosis, horseback accident when young, nephrolithiasis, and micro discectomy and partial hysterectomy over 20 years ago who presents to the ED with severe back pain and spasms. Pt will be admitted to the hospital to observation for treatment of intractable back pain. Intractable back pain and back spasms Morphine 4 mg IV q4 p.r.n.,Cyclobenzaprine 10 mg p.o. tid prn, nsaids ,ppi patient says -he has pain limiting walkin,also unable to sit down mri L spine added , neurochecks ,neuro eval added. 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 Time Spent With Patient Time: Total time managing care of this patient today ____ minutes. Procedures Date of Service Date of Service: 09/27/22
[2022-09-27] MEDS: predniSONE 20 MG TABLET 60 MG PO (17:38)
[2022-09-27 19:07] VITALS: BP 132/67; PULSE 60; RESP 18; TEMP 36.8; O2SAT 92
[2022-09-27 20:00] VITALS: BP 132/67; PULSE 60; RESP 18; TEMP 36.8; O2SAT 92
[2022-09-27] MEDS: Enoxaparin Sodium 40 MG/0.4 ML SYRINGE SUBCUT (21:53)
[2022-09-28 03:35] VITALS: BP 110/65; PULSE 53; RESP 18; TEMP 36.1; O2SAT 94
[2022-09-28] MEDS: Omeprazole 20 MG CAPSULE.DR PO (05:37)
[2022-09-28 07:32] VITALS: BP 123/70; PULSE 58; RESP 17; TEMP 37; O2SAT 96
[2022-09-28] MEDS: Atorvastatin Calcium 10 MG TABLET PO (08:47)
[2022-09-28] MEDS: predniSONE 20 MG TABLET 60 MG PO (08:47)
[2022-09-28] MEDS: amLODIPine Besylate 5 MG TABLET PO (08:47)
[2022-09-28] MEDS: Cyclobenzaprine HCl 10 MG TABLET PO (08:47)
[2022-09-28] MEDS: Escitalopram Oxalate 5 MG TABLET 15 MG PO (08:47)
--- NOTE | 2022-09-28 11:19 | MHC.CM.PN ---
PT DSCHARGING HOME SELF-CARE W/PT ARRANGING TRANSPORT
--- NOTE | 2022-09-28 11:47 | PC.NURSE ---
all belongings with pt. pt left with her . IV removed.
== END 2022-09-28 11:46 | disposition home or self-care (01) ==
LOC: HO.ED 19:12 → HO.EDOVER 20:37 → HO.S3 21:33
PROVIDERS: Physician Assistant Medical; Admitting Provider Student in an Organized Health Care Education/Training Program; Emergency Provider Emergency Medicine Emergency Medical Services; PCP Nurse Practitioner Family; Visit Provider Internal Medicine
DX: M54.50 Low back pain, unspecified (principal); S33.5XXA Sprain of ligaments of lumbar spine, initial encounter; R19.00 Intra-abdominal and pelvic swelling, mass and lump, unspecified site; M62.830 Muscle spasm of back; F32.A Depression, unspecified; I10 Essential (primary) hypertension; E78.5 Hyperlipidemia, unspecified; X58.XXXA Exposure to other specified factors, initial encounter
CPT/HCPCS: 0241U; 72148; 80053; 81003; 83690; 83735; 85025; 85610; 96372; 96374; 96375; 96376; 97161; 99221; 99285; J1650; J1885; J2270

== ENCOUNTER 2025-03-27 23:08 | Emergency (ER) | payer BC, SELFPAY ==
[2025-03-27 23:43] VITALS: BP 121/60; PULSE 77; RESP 20; TEMP 36.9; O2SAT 95; BMI 27.5
--- NOTE | 2025-03-28 00:09 | ED_ITS ---
HPI - General Adult General Chief complaint: Eye Problems Stated complaint: eye problems Time Seen by Provider: 03/28/25 00:08 Source: patient Mode of arrival: ambulatory Limitations: no limitations History of Present Illness ED Provider: Meir HESTER HPI narrative: The patient is a 64-year-old female presenting to the ED reporting at approximately 10:00 while she was at rest but smoking a cigarette she developed a black floater in her left eye. Patient reports throughout the day she developed associated intermittent blurred vision as well as tearing and also dry sensation. The patient reports this evening she noted the onset and increasing frequency of flashes of light only in the left side. The patient denies any visual field loss, specifically denies any current dropping phenomena. Patient reports using readers, denies other corrective lenses. Patient reports a history of hypertension however blood pressure has been well controlled. The patient denies any acute complaint of the right eye. Patient reports mild pressure behind the eye but denies painful or impaired EOMs, denies associated headache, fever/chills, nausea, vomiting or other systemic complaint, denies any corneal foreign body sensation. Related Data Home Medications ?Medication ?Instructions ?Recorded ?Confirmed amlodipine 5 mg tablet 1 tab PO DAILY 09/25/2209/14 atorvastatin 10 mg tablet 1 tab PO DAILY 09/25/2209/14 escitalopram oxalate 10 mg tablet 1.5 tab PO DAILY 08/0509/25/22 olmesartan 40 mg tablet 1 tab PO DAILY 09/25/2209/14 cyclobenzaprine 10 mg tablet 1 tab PO TID 09/26/22 Previous Rx's ?Medication ?Instructions ?Recorded diazepam 5 mg tablet (Valium) 5 mg PO TID PRN muscle s pasm #15 09/22/22 tabs ketorolac 10 mg tablet 10 mg PO Q8H PRN pain #20 ta bs 09/22/22 lidocaine 5 % topical patch 1 patch topical DAILY #15 ea 09/22/22 (Lidoderm) omeprazole 20 mg capsule,delayed 20 mg PO BID@0630,163 0 #30 caps 09/27/22 release oxycodone 5 mg capsule 5 mg PO BID PRN pain #6 caps 09/27/22 docusate sodium 100 mg capsule 100 mg PO DAILY #30 cap s 09/28/22 (Colace) prednisone 10 mg tablet See Taper PO DIRECTED #39 tabs 09/28/22 sennosides 8.6 mg capsule (senna) 8.6 mg PO BEDTIME VA N constipation 09/28/22 #30 caps Allergies Allergy/AdvReac Type Severity Reaction Status Date / Time No Known Allergies Allergy Verified 03/27/25 23:49 Review of Systems Review of Systems: Yes all other systems are reviewed and are negative PMFSH Social History Social History Household Members: Spouse Housing: House Patient Tobacco Use Status: Former Tobacco user Tobacco use type: Cigarette Cigarettes Per Day: 10 Advance Directives: No Advance Directives Information Provided: Yes service: No Current occupational status: employed Physical Exam ED Vital Signs: Vital Signs - 24 hr 03/27/25 23:43 03/28/25 02:00 Temperature 98.5 F 98.1 F Pulse Rate 77 62 Respiratory Rate 20 16 Blood Pressure 121/60 124/68 Pulse Oximetry 95 96 Oxygen Delivery Method Room Air Room Air BMI result Body Mass Index 27.5 CONSTITUTIONAL: The patient appears non-toxic, well nourished and in no acute distress. Vital signs as documented. HEAD: Atraumatic, normocephalic. EYES: EOMs intact and nonpainful, no surrounding erythema, pupils equal round and reactive to light and accommodation, conjunctiva clear, no subconjunctival hemorrhage, no hyphema, no exudate. Fluorescein staining reveals no corneal abrasion or foreign body, negative Alba sign. Intra-ocular pressure 17.4 on the left, 15.9 on the right. On this provider's interpretation of bedside ultr asound there is no evidence of retinal detachment. ENT: Nares patent, no discharge. Airway patent, no audible stridor, visible mucosa is pink and moist without noted lesions. NECK: Trachea is midline, no obvious masses or gross abnormalities. CHEST: Symmetric movement, normal appearance. LUNGS: LS present and CTAB, no w/r/r. Non-labored work of breathing. CARDIAC: Regular Rhythm, S1/S2 appreciated, no murmurs, rubs or gallops. ABDOMEN: Abdomen soft and non-tender x4 quadrants, no palpable masses or organomegaly. : Deferred. EXTREMITIES: Normal tone, moves all extremities spontaneously without reported pain. No obvious acute injury or deformity noted. NEURO: Alert and oriented x3, CN II-XII appear grossly intact. Cerebellar Functioning grossly intact. No obvious sensory or motor deficits. Speech clear and appropriate. PSYCH: normal affect, appropriate eye contact, fluid speech, with appropriate response to questioning. No reported suicidality or homicidality. SKIN: Warm, dry, color appropriate, normal turgor. No rashes noted. Medications Administered Discontinued Medications Generic Name Dose Route Start Last Admin Trade Name Grant PRN Reason Stop Dose Admin Tetracaine HCl 3 drop 03/28/25 00:14 03/28/25 01:26 Tetracaine Hcl 0.5% Oph Kria 5 Ml Drops EYE-BOTH 03/28/25 00:15 3 drop ONCE ONE Administration Tetracaine HCl 3 drop 03/28/25 01:00 03/28/25 01:26 Tetracaine Hcl/Pf 0.5% Oph Kira 4 Ml Drops EYE-BOTH 03/28/25 01:01 Not Given ONCE ONE Medical Decision Making Medical Decision Making MDM Narrative: 12:17 AM 03/28/2025 (Lucila HESTER): Patient is a 64-year-old female presenting to the ED for evaluation of floaters and flashes of the left eye which began at 10:00 and increased throughout the day. Upon initial evaluation patient was in the hallway, difficult to assess, however we will obtain IOP ease, visual acuity, performed fluorescein staining, and consider ultrasound to rule out retinal detachment. Based on patient presentation retinal tear is more likely. 1:35 AM 03/28/2025 (Lucila HESTER): Patient's exam shows normal IOP is bilaterally, no corneal foreign body, no abrasion, no evidence of globe rupture. Optic exam shows no evidence of retinal detachment. There is slight obscurement of the inferior aspect of the left retina compared to the right, however interpretation is difficult secondary to lack of dilation. Bedside ultrasound of the bilateral eyes shows no evidence of active retinal detachment. The patient's presentation continues to be concerning for retinal tear as opposed to detachment. We do not currently have ophthalmology coverage until 04/01. The patient's case will be discussed with [place] [facility] to facilitate close follow up. On-call service was notified and we should expect callback from Dr. Davalos, awaiting callback at this time. 2:16 AM 03/28/2025 (Lucila HESTER): Received call back from Dr. Davalos at [place] [facility], while providing a summary of the patient's case Dr. Davalos advised they do not take direct referral from the ED, and advises patient should be referred to an neurological surgeon to first confirm there is retinal tear prior to consulting retinal specialist. This provider attempted to advise Dr. Davalos that we had no ophthalmology coverage until 04/01, at which time Dr. Davalos advised patient should be referred to another outpatient neurological surgeon and abruptly disconnected the call. We will attempt to find an available outpatient neurological surgeon to follow up with the patient. 2:29 AM 03/28/2025 (Lucila HESTER): Patient's case has been discussed with [facility], awaiting callback from transfer center with their on-call neurological surgeon. 2:36 AM 03/28/2025 (Lucila HESTER): The patient's case was discussed with Dr. Almas Nichols at [facility]. Dr. Nichols advises that they will be able to follow up with the patient. Patient will need to call their office in [place] tomorrow morning after 08:00 to schedule an appointment which will likely be same day or at the latest Monday. The phone number to call his [phone] and will be provided to the patient upon discharge. Admission/Observation Consideration of admission/observation: Escalation of care including admission/observation considered Consult Healthcare Provider Management of the patient was discussed with: Whipped Topping Mixer Discharge Plan Discharge Clinical Impression: Alteration in vision, Sees flashes of light Patient Disposition: Home, Self-Care Instructions: Retinal Hemorrhage (ED), Eye (Visual) Floaters (ED), Blurred Vision (ED) Additional Instructions: Thank you for choosing 's Emergency Department for your care today. Your examination today is consistent with a possible retinal tear or vitreous hemorrhage/detachment, but is not concerning for a retinal detachment. At this time there is no indication for admission to the hospital, continued ED observation, or emergent transfer and it is safe to discharge you home. It is extremely important that you follow up tomorrow morning by calling the [facility] in [place], [place]. Their phone number is [phone]. Their office opens at 8am. Please call and advised them your in the emergency department last night, your evaluation is concerning for a retinal tear, and that your provider spoke with Dr. Almas Nichols who recommended a same-day follow up appointment in their office if possible. Please also follow up with your primary care physician for re-evaluation, additional management of your symptoms, and continued preventative care. If you do not have a primary care physician, please call the [facility] at [phone] to establish a new primary care physician. While waiting to establish your new primary care physician, you can call our Walk[facility]in [facility] at [phone] for non-emergency needs. Please return to the emergency department if you develop any partial or complete loss of your vision, severe pain in your eye, a severe or sudden change in your symptoms, a fever over 100.4 that does not improve with Tylenol or Ibuprofen, recurrent vomiting, or any other new or worsening symptoms or concerns. Prescriptions: No Action atorvastatin 10 mg tablet 1 tab PO DAILY amlodipine 5 mg tablet 1 tab PO DAILY olmesartan 40 mg tablet 1 tab PO DAILY escitalopram oxalate 10 mg tablet 1.5 tab PO DAILY cyclobenzaprine 10 mg tablet 1 tab PO TID omeprazole 20 mg Capsule,Delayed Release(Dr/Ec) 20 mg PO BID@0630,1630 Qty: 30 0RF oxycodone 5 mg capsule 5 mg PO BID PRN (Reason: pain) Qty: 6 0RF Rx Instructions: Partial Fill upon patient request. prednisone 10 mg tablet See Taper PO DIRECTED Qty: 39 0RF Taper: Prednisone 60 mg daily for 3 Days and 0 Hour 40 mg daily for 3 Days and 0 Hour 20 mg daily for 3 Days and 0 Hour 10 mg daily for 3 Days and 0 Hour Rx Instructions: see taper instructions docusate sodium [Colace] 100 mg capsule 100 mg PO DAILY Qty: 30 0RF senna 8.6 mg capsule 8.6 mg PO BEDTIME PRN (Reason: constipation) Qty: 30 0RF diazepam [Valium] 5 mg tablet 5 mg PO TID PRN (Reason: muscle spasm) Qty: 15 0RF lidocaine [Lidoderm] 5 % adhesive patch,medicated 1 patch topical DAILY Qty: 15 0RF Rx Instructions: leave on most painful area for up to 12 hrs ketorolac 10 mg tablet 10 mg PO Q8H PRN (Reason: pain) Qty: 20 0RF Referrals: Liz Hong [employer] [Primary Care Provider, Family Practice] Clinical Impression: Sees flashes of light; Alteration in vision Print Language: Welsh
[2025-03-28] MEDS: Tetracaine HCl 0.5% Oph Sol 5 ML DROPS 3 DROP EYE-BOTH (01:26)
--- OUTSIDE RECORDS SUMMARY | 2025-03-28 01:40 | XMS_ITS | Encounter Summary ---
Author Organization [facility] Address [address] [place] [phone] Phone Care Team Providers Care Shotweld Operator Name Role Phone Margaret Mir NP Unavailable [phone] Janina Schroeder MD Unavailable [phone] Liz Hong NP Primary Care Provider [phone] Encounter Details Date Type Department Care Team (Late st Contact Info) Description 07/01/2020 Procedure Pass [facility], [facility] [address] [place] [address] Social History Tobacco Use Types Packs/Day Years Used Date Smoking Tobacco: Never Assessed Comments No Sex and Gender Information Value Date Recorded Sex Assigned at Not on file Legal Sex Female 9:50 PM EDT Gender Identity Not on file Sexual Orientation Not on file documented as of this encounter Plan of Treatment Not on file documented as of this encounter Visit Diagnoses Not on filedocumented in this encounter Care Teams Shotweld Operator Relationship Specialty Start Date End Date Liz Hong NP [address] [place] [address] PCP - General Family Medicine 05/14/20 Margaret Mir NP [address] [place] [address] [email or web address] Historical LMR Provider 05/30/17 08/21/21 Janina Schroeder MD [address] [place] [address] Historical LMR Provider 05/30/17 2 documented as of this encounter Additional Source Comments The information contained in this document represents components of the legal health record. It is not the complete legal health record.[facility]
--- OUTSIDE RECORDS SUMMARY | 2025-03-28 01:40 | XMS_ITS | Patient Health Record ---
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) Diagnosis 2 Metatarsalgia, left foot (M77.42) Referring Provider First Name Liz Referring Provider Last Name Hal Referred Organization [facility] Referred Provider Yanet Ellsworth Referred Address [address] [place], [place],[address], Referred Provider Specialty Podiatry Referral Priority Routine Medications Medication SIG (Take, Route, Frequency, Duration) Notes Start Date End Date Status Vitamin D Not-Taking Lisinopril 20 MG TAKE 1 TABLET BY BANDAR TH EVERY DAY Oral; Duration: 60 Not-Taking Vitamin D3 Active Escitalopram Oxalate 10 MG 1 tablet Orally Once a day Active Olmesartan Medoxomil 40 MG 1 tablet Orally Once a day Active Atorvastatin Calcium 20 MG 1 tablet Orally Once a day Active amLODIPine Besylate 5 MG 1 tablet Orally Once a day Active Simvastatin 20 MG 1 tablet in the even ing Orally Once a day Not-Taking Immunizations Vaccine Route Administration Date Status Comme nts Influenza Unknown 05/14/2024 Administered Social History Tobacco Use: Social History Observation Description Date Details (start date - stop date) Never Smoker NA - NA Tobacco use other than smoking: Question Answer Notes Are you an other tobacco user? No Tobacco Control (Standard) Question Answer Notes Tobacco use: Nonsmoker Additional Findings: Tobacco non-user Current no nsmoker AUDIT-C (Standard) Question Answer Notes Did you have a drink containing alcohol in the p ast year? 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) Active confirmed Vital Signs Height 5ft 4in in 03/19/2025 Weight 160 lbs 03/19/2025 BMI 27.46 kg/m2 03/19/2025 Procedures Procedure Date Ordered Date Performed Result Body Sit e 79574, J0702- Neuroma/Injection 03/19/2025 N/A Encounters Encounter Location Date Provider Diagnosis [facility] [address] 03/19/2025 Yanet Ellsworth Berger's neuroma of left foot G57.62 ; Pain in left foot M79.672 ; Flat foot [pes planus] (acquired), left foot M21.42 ; Peroneal tendinitis of left lower extremity M76.72 ; Pain in right foot M79.671 ; Flat foot [pes planus] (acquired), right foot M21.41 and Peroneal tendinitis, right leg M76.[address] [facility] [address] 03/19/2025 Yanet Ellsworth Assessments Encounter Date Diagnosis (ICD Code) Assessment Notes Treatment Notes Treatment Clinical Notes Section Notes 03/19/2025 Berger's neuroma of left foot (ICD-10 - G57.62) Patient Educated with: RICE [email or web address].pdf (RICE THERAPY.pdf) Patient Educated with: INJECTIONTHERA PY.pdf (INJECTIONTHER APY.pdf) Patient Educated with: INJECTIONTHERA PY.pdf (INJECTIONTHER APY.pdf) 03/19/2025 Flat foot [pes planus] (acquired), left foot (ICD-10 - M21.42) 03/19/2025 Pain in left foot (ICD-10 - M79.672) 03/19/2025 Peroneal tendinitis of left lower extremity (ICD-10 - M76.72) 03/19/2025 Pain in right foot (ICD-10 - M79.671) 03/19/2025 Flat foot [pes planus] (acquired), right foot (ICD-10 - M21.41) 03/19/2025 Peroneal tendinitis, right leg (ICD-10 - M76.71) Plan Of Treatment Pending Test Test Name Order Date X ray : Foot, left 3V 03/19/2025 X ray : Foot, right 3V 03/19/2025 X ray : Foot, right 3V 12/22/2017 67834, J0702- Neuroma/Injection 03/19/20 Next Appt Details Provider Name:Yanet Link lópez, 06/09/2025 03:15:00 PM, [address] [facility], [place], [address], Insurance Providers Payer Name Payer Address Payer Phone Subscriber Number Group Number Insured Name Patient Relationship to Insured Coverage Start Date Coverage End Date [facility] [address] [place] [address] [id number] Caryn Kumar Self - patient is the insured Medical (General) History Medical History History ICD Code cholesterol high blood pressure Measles Mumps Chicken pox Anemia Anxiety Back,Hip,and Knee pain Broken bones Cholesterol High Blood Pressure Lung disease Lyme disease Warts Melanoma COPD Surgical History Surgery Date(Month/Year) microdiscectomy 12/1997 hysterectomy, laparoscopically assisted 2007 tumor resection 2021
[2025-03-28 02:00] VITALS: BP 124/68; PULSE 62; RESP 16; TEMP 36.7; O2SAT 96
[2025-03-28 03:10] VITALS: BP 124/68; PULSE 62; RESP 16; TEMP 36.7; O2SAT 96
== END 2025-03-28 03:11 | disposition home or self-care (01) ==
PROVIDERS: Emergency Provider Emergency Medicine; PCP Nurse Practitioner Family
DX: H53.8 Other visual disturbances (principal); Z87.891 Personal history of nicotine dependence
CPT/HCPCS: 99283